=== PATIENT | male | born 1965 | race Caucasian/White ===

== ENCOUNTER → 2016-10-07 | Outpatient (CLI) | payer OTHER ==
[2016-10-07 10:13] LABS: Basophils % (A) 1 %; CH 27.1; CHCM 33.1; Eosinophils # (A) 0.2 k/uL (0-0.7); Eosinophils % (A) 4 %; HCT 41.8 % (39.0-53.0); HDW 2.93; HGB 13.6 gm/dL (13.0-17.5); Luc # (Auto) 0.06; Luc % (Auto) 1; Lymphocytes # (A) 1.7 k/uL (1.0-4.8); Lymphocytes % (A) 28 %; MCH 26.8 pg (25.0-35.0); MCHC 32.5 g/dL (31.0-37.0); MCV 82.3 fL (80.0-100.0); Mean Platelet Volume 6.8; Monocytes # (A) 0.4 k/uL (0-1.0); Monocytes % (A) 7 %; Neutrophils # (A) 3.5 k/uL (1.3-7.7); Neutrophils % (A) 59 %; RBC 5.07 m/uL (4.30-5.90); RDW 12.7 % (11.5-15.5); WBC (Perox) 6.45
[2016-10-07 10:37] LABS: ALT 28 U/L (21-72); AST 17 U/L (17-59); Alkaline Phosphatase 79 U/L (38-126); Bilirubin, Delta 0.3 mg/dL (0.0-0.2); Blood Urea Nitrogen 9 mg/dL (9-20); Cholesterol 212 mg/dL (<200); Glucose 91 mg/dL (74-99); HDL Cholesterol 39 mg/dL (40-60); Non-African American GFR(MDRD) >60 (>60 ml/min/1.73 sqM); Total Bilirubin 0.5 mg/dL (0.2-1.3); Triglycerides 303 mg/dL (<150)
== END | disposition home or self-care (01) ==
LOC: LABWHC1 09:50
PROVIDERS: ATTEND Orthopaedic Surgery Orthopaedic Surgery of the Spine
DX: Z51.81 Encounter for therapeutic drug level monitoring (principal); Z79.899 Other long term (current) drug therapy
CPT/HCPCS: 36415; 80061; 80076; 80164; 82306; 82565; 82947; 84520; 85025

== ENCOUNTER 2016-10-28 09:58 | Day surgery (SDC) | payer OTHER ==
[2016-10-22 16:36] VITALS: BMI 38.0
[~2016-10-28 09:58] MED LIST: LACTATED RINGERS 1,000 ML IV SCH
[2016-10-28] MEDS ORDERED: LIDOCAINE 1% 20 ML VIAL (10MG/ML) FOR IV START INTRADERMA ONE (10:28)
[2016-10-28 10:29] VITALS: TEMP 97.9
[2016-10-28] MEDS ORDERED: fentaNYL (PF) 50 MCG/ML 2 ML AMP ONE (11:28)
[2016-10-28] MEDS ORDERED: TRIAMCINOLONE ACETONIDE 40 MG/ML 1 ML VIAL ONE (11:28)
[2016-10-28] MEDS ORDERED: BUPIVACAINE (PF) 0.5% 30 ML VIAL ONE (11:28)
[2016-10-28] MEDS ORDERED: MIDAZOLAM 2 MG/2 ML VIAL ONE (11:28)
--- NOTE | 2016-10-28 11:51 | P.PCN ---
Date of Procedure: 10/28/16 Surgeon: Chao Castillo Pathology: none sent Condition: stable Disposition: PACU Description of Procedure: PREOPERATIVE DIAGNOSIS: L3-L4, L4-L5, and L5-S1 spondylosis without myelopathy and facet arthropathy. POSTOPERATIVE DIAGNOSIS: L3-L4, L4-L5, and L5-S1 spondylosis without myelopathy and facet arthropathy. PROCEDURE DESCRIPTION: Patient presents for L3, L4 and L5 diagnostic medial branch blocks under fluoroscopic guidance. The procedure is performed using fluoroscopic guidance during needle placement to assure proper position and maximize safety. ANESTHESIA: Local with 1% lidocaine; conscious sedation EBL: Minimal PROCEDURE INDICATION: Patient with lumbar facet arthropathy signs and symptoms, here for diagnostic medial branch block. Pt does not take any blood thinning medications. PROCEDURE DESCRIPTION: The patient was seen and identified in the preoperative area. Risks, benefits, complications, and alternatives were discussed with the patient (including but not limited to incomplete pain relief, bleeding, infection, nerve damage, and allergies to medications), the patient agreed to proceed with the procedure and signed the consent after all questions were answered. Patient was taken to the OR and time out was completed to verify proper patient, position, laterality of pain, and allergies. Pt was placed in the prone position and a pillow was placed under the abdomen to reduce lumbar lordosis. The lumbosacral area was prepped and draped in the usual sterile fashion. Using oblique fluoroscopy, the eye of the "Darryl dog" of right L4 vertebral body, which corresponds to the path of the medial branch originating from the level above, which is L3 in this case, was identified. Subsequently, a 22-gauge 3.5-inch spinal needle was inserted under fluoroscopic guidance toward the eye of the "Darryl dog" of the right L4 vertebral body, corresponding to the junction of the superior articular process and the transverse process of the pedicle of the same level. After needle tip confirmation on lateral view and after negative aspiration for CSF and blood and without paresthesias, 1 mL of a 6 ml solution of 0.5% preservative-free bupivacaine and 40 mg Kenalog was injected. Subsequently the needle was withdrawn intact and the same procedure was repeated for the right L4, right L5, left L3, left L4, and left L5 medial branches which together with right L3 medial branch correspond to the sensory innervation of the bilateral L3-L4, L4-L5, and L5-S1 facet joints. Needle was withdrawn intact after each injection. At the end of the procedure, the skin was cleansed and bandages were applied. COMPLICATIONS: None. DISPOSITION/PLAN: The patient taken to the recovery area after the procedure in a stable condition for observation. Patient was reexamined prior to discharge and there were no issues. Patient was discharged home, accompanied by an adult, after meeting discharged criteria. Discharge instructions were give to the patient by the staff. Patient was specifically instructed not to drive today and to rest for the rest of the day. If patient has relief, he will follow up for MBB #2 in 4-6 weeks.
[2016-10-28] MEDS ORDERED: IV FLUID CONTINUATION 1,000 ML IV ONE (12:01)
[2016-10-28 12:03] VITALS: RESP 18
--- NOTE | 2016-10-28 12:03 | FL ---
EXAMINATION TYPE: FL guided pain mgmt statistic DATE OF EXAM: 10/28/2016 11:56 AM CLINICAL HISTORY: Low back pain. TECHNIQUE: Fluoroscopy. COMPARISON: None. FINDINGS: Fluoroscopic guidance was provided during pain relief procedure performed by Dr. Castillo . A total of 28 seconds of fluoroscopic time was utilized during the procedure and 5 spot images are ac quired. Images acquired shows needle localization at several levels in the lumbar spine near lumbosa cral junction. IMPRESSION: As Above.
[2016-10-28 12:20] VITALS: BP 118/69; PULSE 72
== END 2016-10-28 12:41 | disposition home or self-care (01) ==
LOC: ORPAIN 09:58
PROVIDERS: ATTEND Anesthesiology
DX: G89.29 Other chronic pain (principal); M47.817 Spondylosis without myelopathy or radiculopathy, lumbosacral region; M46.97 Unspecified inflammatory spondylopathy, lumbosacral region; F41.9 Anxiety disorder, unspecified; F31.9 Bipolar disorder, unspecified; K21.9 Gastro-esophageal reflux disease without esophagitis; N40.0 Benign prostatic hyperplasia without lower urinary tract symptoms
CPT/HCPCS: 64493; 64494; 64495; J2250; J3301; J3010

== ENCOUNTER 2016-11-24 06:20 | Day surgery (SDC) | payer OTHER ==
[2016-11-19 12:52] VITALS: BMI 35.9
[2016-11-24 06:52] VITALS: RESP 18; TEMP 97.1
[2016-11-24] MEDS ORDERED: LIDOCAINE 1% 20 ML VIAL (10MG/ML) FOR IV START INTRADERMA ONE (07:00)
[2016-11-24] MEDS ORDERED: TRIAMCINOLONE ACETONIDE 40 MG/ML 1 ML VIAL ONE (08:11)
[2016-11-24] MEDS ORDERED: MIDAZOLAM 2 MG/2 ML VIAL ONE (08:11)
[2016-11-24] MEDS ORDERED: fentaNYL (PF) 50 MCG/ML 2 ML AMP ONE (08:11)
[2016-11-24] MEDS ORDERED: BUPIVACAINE (PF) 0.5% 30 ML VIAL ONE (08:11)
--- NOTE | 2016-11-24 08:39 | P.PCN ---
Date of Procedure: 11/24/16 Procedure(s) Performed: PREOPERATIVE DIAGNOSIS : 1- Lumbar spondylosis with Facet Arthropathy without myelopathy . 2- Lumber degenerative disc disease POSTOPERATIVE DIAGNOSIS: 1- Lumbar spondylosis with Facet Arthropathy without myelopathy . 2- Lumber degenerative disc disease PROCEDURE: Diagnostic bilateral L3 -4 , L4 -5 , and L5-S1 medial branch block under fluoroscopy# 2nd ANESTHESIA: Local with 1% lidocaine6 ml ; IV sedation with Versed 2 mg and Fentanyl 100 mcg. EBL: Minimal COMPLICATION: None. IV FLUIDS: 100 mL of normal saline. PROCEDURE INDICATION: Chronic low back pain secondary to Facet arthropathy unresponsive to conservative treatment. PROCEDURE DESCRIPTION: the patient was seen and identified in the preop holding area , risks and benefits and possible complications of the procedure and alternative were discussed with the patient, and the patient agreed to proceed with the procedure and signed the consent IV was started and vital signs monitored during the procedure and fluoroscopy was used to maximize the benefit and accuracy of the needle placement, and sedation was given to decrease patient anxiety, patient was taken to the procedure room and placed in prone position vital signs monitored in the back prepped with chlorhexidine X3 then under strict sterile technique using a right oblique fluoroscopy ,the junction of the transverse process and the superior articulating process of the right L3- 4 , L4- 5, and L5-S1 vertebra which corresponding to the fluoroscopy image of the eye of the Darryl dog on the block side for the medial branches and subsequently , after local infiltration of skin and subcu tissuies with lidocaine 1% one mL at each level ,then 22- gauge Quincke-type needles , 3 needle was used , each one of them placed at the junction of the base of the transverse process and the superior articular process at the appropriate level, and the needle was advanced until the periosteum contacted, needle placement confirmed with AP oblique and lateral view and after appropriate needle placement confirmed, and after negative aspiration for heme and CSF and there was no paresthesia 1-1/2 mL of Marcaine 0.5% mixed with 40 mg Kenalog , then half mL injected at each level after negative aspiration the needle subsequently removed and the same procedure repeated for the left side at left side at L3-4, L4- 5 and L5-S1 levels. At the end of the procedure and the needles removed and a bandage applied after the skin was cleaned the cleaning solution patient taken to recovery room in stable condition and monitors in the recovery room for 20-30 minutes and discharged home in stable condition after discharge criteria met and patient will follow up with the pain clinic in 2-4 weeks
[2016-11-24] MEDS ORDERED: IV FLUID CONTINUATION 1,000 ML IV ONE (08:45)
[2016-11-24 09:08] VITALS: BP 117/80; PULSE 74
--- NOTE | 2016-11-24 09:14 | FL ---
EXAMINATION TYPE: FL guided pain mgmt statistic DATE OF EXAM: 11/24/2016 8:40 AM CLINICAL HISTORY: Low back pain. TECHNIQUE: Fluoroscopy. COMPARISON: None. FINDINGS: Fluoroscopic guidance was provided during pain relief procedure performed by Dr. Obando . A total of 11 seconds of fluoroscopic time was utilized during the procedure and multiple spot samara ges are acquired. Images acquired shows needle localization in the lower lumbar spine off the midlin e bilaterally. IMPRESSION: As Above.
== END 2016-11-24 09:16 | disposition home or self-care (01) ==
LOC: ORPAIN 06:20
PROVIDERS: ATTEND Specialist
DX: G89.29 Other chronic pain (principal); M51.36 Other intervertebral disc degeneration, lumbar region; M47.816 Spondylosis without myelopathy or radiculopathy, lumbar region; M46.96 Unspecified inflammatory spondylopathy, lumbar region; I10 Essential (primary) hypertension
CPT/HCPCS: 64493; 64494; 64495; 99152; J2250; J3301; J3010

== ENCOUNTER → 2016-12-15 | Day surgery (SDC) | payer MEDICARE, OTHER ==
[2016-12-10 09:28] VITALS: BMI 35.2
[~2016-12-15] MED LIST changes: +LIDOCAINE 1% 20 ML VIAL (10MG/ML) FOR IV START SQ ONE
[2016-12-15 08:39] VITALS: BP 120/78; PULSE 78; RESP 20; TEMP 97.9
--- NOTE | 2016-12-15 08:53 | P.PN ---
Progress Note - Text Patient seen and examined in preop area. Patient states that he has no pain in his back right now and has had excellent relief from medial branch blocks. Will reschedule lumbar RFA for four weeks from now; instructed patient to call and cancel if he is still having good relief from the MBBs. No procedure done today.
== END ==
LOC: ORPAIN 07:36
DX: Z53.9 Procedure and treatment not carried out, unspecified reason (principal)

== ENCOUNTER 2017-07-26 09:53 | Day surgery (SDC) | payer MEDICARE ==
[2017-07-23 08:52] VITALS: BMI 36.2
[~2017-07-26 09:53] MED LIST changes: -LIDOCAINE 1% 20 ML VIAL (10MG/ML) FOR IV START SQ ONE
[2017-07-26 10:25] VITALS: RESP 16; TEMP 97.9
[2017-07-26] MEDS ORDERED: LIDOCAINE 1% 20 ML VIAL (10MG/ML) FOR IV START INTRADERMA ONE (10:28)
--- NOTE | 2017-07-26 11:33 | P.PCN ---
Date of Procedure: 07/26/17 Surgeon: Micaela Chadwick Pathology: none sent Condition: stable Disposition: PACU Description of Procedure: PREOPERATIVE DIAGNOSIS: Lumbar spondylosis without myelopathy, morbid obesity POSTOPERATIVE DIAGNOSIS: Lumbar spondylosis without myelopathy,morbid obesity PROCEDURES :Right Radiofrequency thermocoagulation,L2-4, L3-L4, L4-L5, and L5- S1 medial branch, with fluoroscopic guidance ANESTHESIA: IV sedation with versed and fentaneyl and local infiltration with lidocaine 1% 5 ml EBL: Minimal PROCEDURE INDICATION: The patient with low back pain secondary to lumbar facet arthropathy who had more than 50% relief of her pain with previous diagnostic lumbar medial branch block with bupivacaine. PROCEDURE DESCRIPTION / TECHNIQUE: The patient was seen and identified in the preoperative area. Risks, benefits, complications, including but not limited to risk of infection ,bleeding , allergic reactions to the medications and no complete pain releife , and alternatives were discussed with the patient, the patient agreed to proceed with the procedure and signed the consent. IV was started. Vital signs remained stable throughout the procedure. Patient was taken to the OR and time out was completed. The patient was placed in the prone position on the procedure table. The lumber area was prepped and draped in the usual sterile fashion. . Vital signs were closely monitored during the procedure .IV sedation was used during the procedure to decrease patients anxiety. The target points were identified as follows: For the L5-S1 level which corresponds to the dorsal ramus of L5 the target point was at the superior medial aspect of the sacral ala on the Rt side of the spine on the AP view of fluoroscopy and for the L2, L3, and L4 medial branches the target points were at the connection between the transverse process and the superior articular process of L3, L4, and L5 vertebra respectively on the Rt oblique view of fluoroscopy. skin was marked, and localized with 1% lidocaineat these points. Subsequently, an 18 -nh radiofrequency needles with a 10-mm curved active tips were advanced guided by fluoroscopy to each of the target points mentioned above in a superior medial direction to get the active tips as parallel as possible to the medial branches tracks. AP, oblique, and lateral views of fluoroscopy were used to verify needle tips position. Each level then underwent motor testing at 2.5 Hz and 0 to 3 volt with local stimulation, but no radicular symptoms down the legs. Thereafter radiofrequency thermocoagulation at 80 degrees celsius for 90 seconds after injecting 1 ml of PF Marcaine 0.25%(3 mls) with 40 mg of Kenalog. At the end of the procedure, the skin was cleansed and bandages were applied. COMPLICATIONS: No acute complications. DISPOSITION / PLANS: The patient was placed in a supine position and transferred to the recovery area in a stable condition for observation and was discharged from the recovery room after meeting discharge criteria. Home discharge instructions given to the patient by the staff. The patient was reexamined prior to discharge. The patient will schedule a follow up in the clinic in 2-4 weeks.
[2017-07-26] MEDS ORDERED: IV FLUID CONTINUATION 1,000 ML IV ONE (11:44)
[2017-07-26 11:59] VITALS: BP 155/98; PULSE 110
--- NOTE | 2017-07-26 14:37 | FL ---
EXAMINATION TYPE: FL guided pain mgmt statistic DATE OF EXAM: 07/26/2017 FLUOROSCOPY Fluoroscopy time of 14 seconds was used during right-sided lumbar radiofrequency ablation. 3 image/s document/s the procedure.
== END 2017-07-26 12:14 | disposition home or self-care (01) ==
LOC: ORPAIN 09:53
PROVIDERS: ATTEND Anesthesiology
DX: M47.816 Spondylosis without myelopathy or radiculopathy, lumbar region (principal); M51.36 Other intervertebral disc degeneration, lumbar region; M46.96 Unspecified inflammatory spondylopathy, lumbar region; I10 Essential (primary) hypertension; J45.909 Unspecified asthma, uncomplicated; G47.33 Obstructive sleep apnea (adult) (pediatric); E66.01 Morbid (severe) obesity due to excess calories; Z68.36 Body mass index [BMI] 36.0-36.9, adult
CPT/HCPCS: 64635; 64636 ×3; J2250; J3301; J3010; 99152; 99153

== ENCOUNTER 2018-05-16 05:10 | Emergency (ER) | payer MEDICARE ==
--- NOTE | 2018-05-16 05:25 | ED ---
General Adult HPI - General Chief complaint: Extremity Injury, Lower Stated complaint: LEG PAIN Time Seen by Provider: 05/16/18 05:11 Source: EMS Mode of arrival: EMS - History of Present Illness Initial comments: Que is a 52-year-old gentleman who presents to the emergency department today for evaluation of progressively worsening right ankle pain. Patient reports that he has a left ankle fracture which is currently casted and he has been walking with crutches. He has been prescribed Ultram for his pain in his left ankle and had been taking them but it made him very nauseated and didn't improve his pain so is quit taking it. Patient reports that over the past couple of days he's been feeling progressively worse having hot flashes, nausea , inability tolerate oral intake and worsening pain in his right ankle. Patient reports that over the past few hours he has noted progressive redness in the right ankle and has significant pain when attempting to ambulate even with his crutches. The patient does report a history of gout in the past though he can't recall which joint he had gout in or out was treated. He denies any history of septic joint or osteomyelitis to his knowledge. His pain is constant aching and sharp in nature, 10 out of 10 in severity, constant but worse with any movement or weightbearing, patient has identified no relieving factors to his pain. She does report that he had dropped something on his right ankle a couple of days ago it did cause a superficial laceration to the anterior surface of the right ankle but pain started a day or 2 after that. - Related Data Home Medications Medication Instructions Recorded Confirmed Citalopram Hydrobromide [CeleXA] 20 mg PO HS 08/24/16 07/23/17 Losartan Potassium 100 mg PO DAILY 08/24/16 07/23/17 Multivitamins, Thera [Multivitamin 1 each PO DAILY 08/24/16 07/23/17 (formulary)] Omeprazole [PriLOSEC] 20 mg PO DAILY 08/24/16 07/23/17 QUEtiapine [SEROquel] 25 mg PO BID 08/24/16 07/23/17 clonazePAM [KlonoPIN] 0.25 mg PO TID 08/24/16 07/23/17 Valproic Acid Oral Soln [Depakene 30 ml PO HS 09/01/16 07/23/17 Syrup] Previous Rx's Medication Instructions Recorded Albuterol Inhaler [Ventolin Hfa 2 puff INHALATION RT-BID PRN #1 04/01/15 Inhaler] inhaler Budesonide-Formot 160-4.5 Mcg 2 puff INHALATION RT-DAILY #1 04/01/15 [Symbicort 160-4.5 Mcg Inhaler] inhaler Levothyroxine Sodium [Synthroid] 50 mcg PO DAILY 14 Days tab 04/01/15 Tamsulosin [Flomax] 0.4 mg PO DAILY 7 Days cap.er.24h 04/01/15 QUEtiapine [SEROquel] 300 mg PO HS #42 tab 06/18/15 clonazePAM [KlonoPIN] 2 mg PO HS #28 tab 06/18/15 Ibuprofen [Motrin] 800 mg PO TID #30 tab 05/16/18 Allergies Allergy/AdvReac Type Severity Reaction Status Date / Time No Known Allergies Allergy Verified 07/26/17 10:21 Review of Systems ROS Statement: Those systems with pertinent positive or pertinent negative responses have been documented in the HPI. ROS Other: All systems not noted in ROS Statement are negative. Past Medical History Past Medical History: Asthma, GERD/Reflux, Hypertension, Osteoarthritis (OA), Thyroid Disorder Additional Past Medical History / Comment(s): psoriasis head and face, ESOPHAGEAL STRICTURE, alcoholism, BACK PAIN, bipolar History of Any Multi-Drug Resistant Organisms: None Reported Past Surgical History: Appendectomy Additional Past Surgical History / Comment(s): EGD x2, PAIN CLINIC PROCEDURES. Past Anesthesia/Blood Transfusion Reactions: No Reported Reaction Past Psychological History: Anxiety, Bipolar, Depression Smoking Status: Never smoker Past Alcohol Use History: None Reported Past Drug Use History: None Reported - Past Family History Mother Family Medical History: No Reported History Father Family Medical History: AFIB General Exam - General Exam Comments Initial Comments: GENERAL: Patient is well-developed and obese. Patient is chronically ill-appearing, diaphoretic, pale and appears very uncomfortable. HENT: Normocephalic, Atraumatic. Rash on scalp and face consistent with history of psoriasis EYES: The sclera were anicteric and conjunctiva were pink and moist. Extraocular movements were intact and pupils were equal round and reactive to light. Eyelids were unremarkable. PULMONARY: Unlabored respirations. Good breath sounds bilaterally. No audible rales rhonchi or wheezing was noted. CARDIOVASCULAR: Tachycardia, regular, no murmur rub or gallop ABDOMEN: Soft and nontender with normal bowel sounds. SKIN: Erythematous right ankle NEUROLOGIC: Patient is alert and oriented x3. Cranial nerves II through XII are grossly intact. Motor and sensory are also intact. Normal speech, volume and content. Symmetrical smile. MUSCULOSKELETAL: LLE in lower leg cast, toes neurovascularly intact RIght ankle with decreased active ROM, pain with ROM, overlying erythema LYMPHATICS: No significant lymphadenopathy is noted PSYCHIATRIC: Normal psychiatric evaluation. Limitations: no limitations Course Vital Signs 05/16/18 05/16/18 05/16/18 05:13 07:18 08:28 Temperature 98.5 F Pulse Rate 109 H 95 84 Respiratory 16 18 18 Rate Blood Pressure 123/85 123/86 117/80 O2 Sat by Pulse 96 96 95 Oximetry Medical Decision Making - Medical Decision Making Patient seen and evaluated, history was obtained from the patient Patient was tachycardic with an erythematous right ankle, sepsis workup and CRP an x-ray of the ankle were ordered Erythema of the ankle was marked with a permanent marker for closer monitoring. Labs with a significantly elevated uric acid as well as CRP. Patient does have a history of gout. I have a high suspicion of gout. Patient doesn't have leukocytosis or fever. Tachycardia resolved when patient's pain improved. X-ray reviewed, no changes suggestive of septic joint At this point based on history, physical exam, labs and xray I suspect the patient is having an acute gout flair. Colchicine ordered. Patient updated on findings and plan for treatment and discharge home. Patient frustrated but agreeable, can call his parents for ride home. Repeat dose of colchicine ordered. Morphine for pain management. Return parameters were discussed including any worsening or spreading redness, development of fevers, chills, nausea or vomiting. All her development of any new or concerning symptoms. Patient was discharged home in stable condition. - Lab Data Result diagrams: 05/16/18 06:57 05/16/18 06:57 Lab Results 05/16/18 05/16/18 05/16/18 Range/Units 06:57 06:57 06:57 WBC 9.8 (3.8-10.6) k/uL RBC 4.27 L (4.30-5.90) m/uL Hgb 12.7 L (13.0-17.5) gm/dL Hct 40.5 (39.0-53.0) % MCV 94.7 (80.0-100.0) fL MCH 29.7 (25.0-35.0) pg MCHC 31.4 (31.0-37.0) g/dL RDW 13.2 (11.5-15.5) % Plt Count 220 (150-450) k/uL Neutrophils % 76 % Lymphocytes % 14 % Monocytes % 7 % Eosinophils % 2 % Basophils % 0 % Neutrophils # 7.4 (1.3-7.7) k/uL Lymphocytes # 1.3 (1.0-4.8) k/uL Monocytes # 0.6 (0-1.0) k/uL Eosinophils # 0.2 (0-0.7) k/uL Basophils # 0.0 (0-0.2) k/uL PT (9.0-12.0) sec INR (<1.2) APTT (22.0-30.0) sec Sodium 141 (137-145) mmol/L Potassium 4.5 (3.5-5.1) mmol/L Chloride 101 (98-107) mmol/L Carbon Dioxide 27 (22-30) mmol/L Anion Gap 13 mmol/L BUN 15 (9-20) mg/dL Creatinine 1.00 (0.66-1.25) mg/dL Est GFR (CKD-EPI)AfAm >90 (>60 ml/min/1.73 sqM) Est GFR (CKD-EPI)NonAf 85 (>60 ml/min/1.73 sqM) Glucose 84 (74-99) mg/dL Plasma Lactic Acid Benji 1.0 (0.7-2.0) mmol/L Uric Acid 13.8 H* (3.5-8.5) mg/dL Calcium 9.2 (8.4-10.2) mg/dL Total Bilirubin 1.5 H (0.2-1.3) mg/dL AST 58 (17-59) U/L ALT 37 (21-72) U/L Alkaline Phosphatase 82 (38-126) U/L C-Reactive Protein 86.2 H (<10.0) mg/L Total Protein 6.8 (6.3-8.2) g/dL Albumin 3.7 (3.5-5.0) g/dL 05/16/18 Range/Units 06:57 WBC (3.8-10.6) k/uL RBC (4.30-5.90) m/uL Hgb (13.0-17.5) gm/dL Hct (39.0-53.0) % MCV (80.0-100.0) fL MCH (25.0-35.0) pg MCHC (31.0-37.0) g/dL RDW (11.5-15.5) % Plt Count (150-450) k/uL Neutrophils % % Lymphocytes % % Monocytes % % Eosinophils % % Basophils % % Neutrophils # (1.3-7.7) k/uL Lymphocytes # (1.0-4.8) k/uL Monocytes # (0-1.0) k/uL Eosinophils # (0-0.7) k/uL Basophils # (0-0.2) k/uL PT 16.9 H (9.0-12.0) sec INR 1.9 H (<1.2) APTT 27.8 (22.0-30.0) sec Sodium (137-145) mmol/L Potassium (3.5-5.1) mmol/L Chloride (98-107) mmol/L Carbon Dioxide (22-30) mmol/L Anion Gap mmol/L BUN (9-20) mg/dL Creatinine (0.66-1.25) mg/dL Est GFR (CKD-EPI)AfAm (>60 ml/min/1.73 sqM) Est GFR (CKD-EPI)NonAf (>60 ml/min/1.73 sqM) Glucose (74-99) mg/dL Plasma Lactic Acid Benji (0.7-2.0) mmol/L Uric Acid (3.5-8.5) mg/dL Calcium (8.4-10.2) mg/dL Total Bilirubin (0.2-1.3) mg/dL AST (17-59) U/L ALT (21-72) U/L Alkaline Phosphatase (38-126) U/L C-Reactive Protein (<10.0) mg/L Total Protein (6.3-8.2) g/dL Albumin (3.5-5.0) g/dL Disposition Clinical Impression: Obesity, Ankle fracture, Gout attack, Musculoskeletal pain Disposition: HOME SELF-CARE Condition: Stable Instructions: Gout (ED), Low Purine Diet (ED) Prescriptions: Ibuprofen [Motrin] 800 mg PO TID #30 tab Is patient prescribed a controlled substance at d/c from ED?: No Referrals: Sonali Main MD [Primary Care Provider] - 1-2 days
[2018-05-16] MEDS ORDERED: IBUPROFEN IV 600 MG in SODIUM CHLORIDE 0.9% 250 ML IV STA (06:33)
[2018-05-16] MEDS ORDERED: ACETAMINOPHEN TAB 500 MG TAB PO STA (06:33)
[2018-05-16 07:10] LABS: Basophils % (A) 0 %; Eosinophils # (A) 0.2 k/uL (0-0.7); Eosinophils % (A) 2 %; HCT 40.5 % (39.0-53.0); HGB 12.7 gm/dL (13.0-17.5); Lymphocytes # (A) 1.3 k/uL (1.0-4.8); Lymphocytes % (A) 14 %; MCH 29.7 pg (25.0-35.0); MCHC 31.4 g/dL (31.0-37.0); MCV 94.7 fL (80.0-100.0); Mean Platelet Volume 6.9; Monocytes # (A) 0.6 k/uL (0-1.0); Monocytes % (A) 7 %; Neutrophils # (A) 7.4 k/uL (1.3-7.7); Neutrophils % (A) 76 %; Platelet Count 220 k/uL (150-450); RBC 4.27 m/uL (4.30-5.90); RDW 13.2 % (11.5-15.5); WBC 9.8 k/uL (3.8-10.6)
[2018-05-16 07:18] LABS: INR 1.9 (<1.2); Partial Thromboplastin Time 27.8 sec (22.0-30.0); Prothrombin Time 16.9 sec (9.0-12.0)
[2018-05-16 07:20] VITALS: RESP 18
[2018-05-16 07:20] LABS: ALT 37 U/L (21-72); AST 58 U/L (17-59); Albumin 3.7 g/dL (3.5-5.0); Alkaline Phosphatase 82 U/L (38-126); Anion Gap 13 mmol/L; Blood Urea Nitrogen 15 mg/dL (9-20); C Reactive Protein 86.2 mg/L (<10.0); Calcium 9.2 mg/dL (8.4-10.2); Carbon Dioxide 27 mmol/L (22-30); Chloride 101 mmol/L (98-107); Glucose 84 mg/dL (74-99); Potassium 4.5 mmol/L (3.5-5.1); Sodium 141 mmol/L (137-145); Total Bilirubin 1.5 mg/dL (0.2-1.3); Total Protein 6.8 g/dL (6.3-8.2)
[2018-05-16] MEDS: SODIUM CHLORIDE 0.9% 500 ML IV SCH ×3 (07:20→08:26)
[2018-05-16 07:30] LABS: Uric Acid 13.8 mg/dL (3.5-8.5)
[2018-05-16] MEDS ORDERED: COLCHICINE 0.6 MG EACH PO STA ×2 (07:46→08:58)
--- NOTE | 2018-05-16 08:00 | XR ---
EXAMINATION TYPE: XR ankle limited RT DATE OF EXAM: 05/16/2018 COMPARISON: NONE HISTORY: 52-year-old male pain, concern for septic joint TECHNIQUE: 2 views FINDINGS: Vascular calcifications are present. There may be underlying small joint effusion. No periarticular o steopenia. Talar dome is intact. Mild diffuse thickening of the Achilles tendon could reflect tendino nery. No acute fracture or dislocation. IMPRESSION: Mild soft tissue swelling. Possible small effusion. No acute osseous abnormality seen. No periarticular osteopenia which is generally seen with a septic joint. Further clinical correlation will be needed.
[2018-05-16] MEDS ORDERED: MORPHINE SULFATE 4 MG/ML SYRINGE IVP STA (08:59)
[2018-05-16 09:25] VITALS: BP 145/89; PULSE 87
[2018-05-16 09:41] VITALS: TEMP 98.3
== END 2018-05-16 09:43 | disposition home or self-care (01) ==
LOC: EC 05:10
DX: S82.891A Other fracture of right lower leg, initial encounter for closed fracture (principal); M10.9 Gout, unspecified; E66.9 Obesity, unspecified; Z68.36 Body mass index [BMI] 36.0-36.9, adult; R00.0 Tachycardia, unspecified; K21.9 Gastro-esophageal reflux disease without esophagitis; I10 Essential (primary) hypertension; M19.90 Unspecified osteoarthritis, unspecified site; F41.9 Anxiety disorder, unspecified; F32.9 Major depressive disorder, single episode, unspecified; Z79.899 Other long term (current) drug therapy; W20.8XXA Other cause of strike by thrown, projected or falling object, initial encounter
CPT/HCPCS: 36415; 93005; 80053; 83605; 84550; 85025; 85610; 85730; 86140; 87040; 73600; 99284; 96365; 96375; J2270; J1741

== ENCOUNTER 2018-09-05 10:48 | Inpatient (IN) | payer MEDICARE ==
[2018-09-05] MEDS ORDERED: MORPHINE SULFATE 4 MG/ML SYRINGE IVP STA (11:14)
[2018-09-05] MEDS ORDERED: ONDANSETRON 4 MG/2 ML VIAL IVP STA (11:14)
--- NOTE | 2018-09-05 11:34 | ED ---
Extremity Problem HPI <Chas Weinstein - Last Filed: 09/05/18 15:35> - General Source: patient Mode of arrival: ambulatory Limitations: no limitations <Fawn Torre - Last Filed: 09/05/18 15:39> - General Chief complaint: Extremity Problem,Nontraumatic Stated complaint: Leg Swelling Time Seen by Provider: 09/05/18 11:02 - History of Present Illness Initial comments: 53-year-old male patient presents to the emergency department today for evaluation of painful, swollen left lower extremity. Patient states that he started to have swelling 2-3 days ago. Patient states that it has been worsening a daily basis. Patient states that it is very painful to walk on the leg. Denies any injuries. States that times he has been short of breath with left-sided chest pain. Patient denies any history of blood clots. Denies any recent travel, history of cancer, or prolonged immobilization. He denies any numbness or tingling to the leg. Denies any low back pain. Has not had any fever, chills, nausea, vomiting, or sweats. Patient denies any recent rash, abdominal pain, nausea, vomiting, diarrhea, constipation, back pain, dizziness, weakness, hematuria, dysuria, urinary urgency, urinary frequency, headache, visual changes, or any other complaints. (Fawn Torre) - Related Data Home Medications Medication Instructions Recorded Confirmed Citalopram Hydrobromide [CeleXA] 20 mg PO HS 08/24/16 07/23/17 Losartan Potassium 100 mg PO DAILY 08/24/16 07/23/17 Multivitamins, Thera [Multivitamin 1 each PO DAILY 08/24/16 07/23/17 (formulary)] Omeprazole [PriLOSEC] 20 mg PO DAILY 08/24/16 07/23/17 QUEtiapine [SEROquel] 25 mg PO BID 08/24/16 07/23/17 clonazePAM [KlonoPIN] 0.25 mg PO TID 08/24/16 07/23/17 Valproic Acid Oral Soln [Depakene 30 ml PO HS 09/01/16 07/23/17 Syrup] Previous Rx's Medication Instructions Recorded Albuterol Inhaler [Ventolin Hfa 2 puff INHALATION RT-BID PRN #1 04/01/15 Inhaler] inhaler Budesonide-Formot 160-4.5 Mcg 2 puff INHALATION RT-DAILY #1 04/01/15 [Symbicort 160-4.5 Mcg Inhaler] inhaler Levothyroxine Sodium [Synthroid] 50 mcg PO DAILY 14 Days tab 04/01/15 Tamsulosin [Flomax] 0.4 mg PO DAILY 7 Days cap.er.24h 04/01/15 QUEtiapine [SEROquel] 300 mg PO HS #42 tab 06/18/15 clonazePAM [KlonoPIN] 2 mg PO HS #28 tab 06/18/15 Ibuprofen [Motrin] 800 mg PO TID #30 tab 05/16/18 Allergies Allergy/AdvReac Type Severity Reaction Status Date / Time No Known Allergies Allergy Verified 09/05/18 10:54 Review of Systems ROS Other: All systems not noted in ROS Statement are negative. <Chas Weinstein - Last Filed: 09/05/18 15:35> ROS Other: All systems not noted in ROS Statement are negative. <Fawn Torre - Last Filed: 09/05/18 15:39> ROS Statement: Those systems with pertinent positive or pertinent negative responses have been documented in the HPI. Past Medical History Past Medical History: Asthma, GERD/Reflux, Hypertension, Osteoarthritis (OA), Thyroid Disorder Additional Past Medical History / Comment(s): psoriasis head and face, ESOPHAGEAL STRICTURE, alcoholism, BACK PAIN, bipolar History of Any Multi-Drug Resistant Organisms: None Reported Past Surgical History: Appendectomy Additional Past Surgical History / Comment(s): EGD x2, PAIN CLINIC PROCEDURES. Past Anesthesia/Blood Transfusion Reactions: No Reported Reaction Past Psychological History: Anxiety, Bipolar, Depression Smoking Status: Never smoker Past Alcohol Use History: None Reported Past Drug Use History: None Reported - Past Family History Mother Family Medical History: No Reported History Father Family Medical History: AFIB <Fawn Torre - Last Filed: 09/05/18 15:39> General Exam Limitations: no limitations General appearance: alert, in no apparent distress, other (This is a well- developed, well-nourished adult male patient in no acute distress. Vital signs upon presentation are temperature 98.0F, pulse 93, respirations 20, blood pressure 119/83, pulse ox 95% on room air.) Eye exam: Present: normal appearance, PERRL, EOMI. Absent: scleral icterus, conjunctival injection, periorbital swelling ENT exam: Present: normal exam, normal oropharynx, mucous membranes moist Respiratory exam: Present: normal lung sounds bilaterally. Absent: respiratory distress, wheezes, rales, rhonchi, stridor Cardiovascular Exam: Present: regular rate, normal rhythm, normal heart sounds. Absent: systolic murmur, diastolic murmur, rubs, gallop, clicks GI/Abdominal exam: Present: soft, normal bowel sounds. Absent: distended, tenderness, guarding, rebound, rigid Extremities exam: Present: full ROM, normal capillary refill, other (Patient has generalized 3+ pitting edema to the left leg. Patient has sommer appearance to the entire left leg. Pedal and posttibial pulses palpable.). Absent: normal inspection, tenderness, pedal edema, joint swelling, calf tenderness Neurological exam: Present: alert, oriented X3, CN II-XII intact Psychiatric exam: Present: normal affect, normal mood Skin exam: Present: warm, dry, intact, normal color. Absent: rash <Bantle,Fawn M - Last Filed: 09/05/18 15:39> Vital Signs 09/05/18 09/05/18 09/05/18 10:52 13:52 14:00 Temperature 98 F Pulse Rate 93 Respiratory 20 Rate Blood Pressure 119/83 117/74 117/74 O2 Sat by Pulse 95 86 L Oximetry 09/05/18 09/05/18 09/05/18 14:10 14:20 14:29 Temperature 98.7 F Pulse Rate 96 Respiratory 20 Rate Blood Pressure 117/74 117/74 120/82 O2 Sat by Pulse 91 L 90 L 89 L Oximetry 09/05/18 09/05/18 09/05/18 14:30 14:40 14:50 Temperature Pulse Rate 97 98 Respiratory 19 10 L Rate Blood Pressure 117/74 120/82 120/82 O2 Sat by Pulse 88 L 96 95 Oximetry 09/05/18 09/05/18 09/05/18 15:00 15:10 15:20 Temperature Pulse Rate 95 92 96 Respiratory 10 L 12 19 Rate Blood Pressure 120/82 121/93 121/93 O2 Sat by Pulse 93 L 92 L Oximetry Medical Decision Making - Lab Data Result diagrams: 09/05/18 11:35 09/05/18 11:35 <Chas Weinstein - Last Filed: 09/05/18 15:35> - Lab Data Result diagrams: 09/05/18 11:35 09/05/18 11:35 - EKG Data -: EKG Interpreted by Me - Radiology Data Radiology results: report reviewed, image reviewed <Fawn Torre - Last Filed: 09/05/18 15:39> - Medical Decision Making Patient reevaluated and reexamined by myself, Dr. Weinstein. Patient resting comfortably in bed. I did review and agree with PAs findings. This includes all diagnostic interpretation and treatment plan. Case was discussed in detail with Dr. Ann, covering for Dr. Garay, who will admit. (Chas Weinstein) 53-year-old male patient presented to the emergency department today for evaluation of left lower extremity swelling and pain. Patient also reported intermittent episodes of shortness of breath and chest pain. Labs reviewed and are relatively unremarkable. Ultrasound of the left lower extremity was obtained and did reveal extensive DVT from the left groin to the proximal calf veins. The patient's history of shortness of breath and chest pain over the last couple of days he did perform CT angio of the chest for PE which did reveal multiple pulmonary emboli especially on the right with small saddle embolus. No evidence of right heart strain. EKG is normal sinus rhythm. Troponin negative. Did discuss results with my attending Dr. Weinstein, patient will be admitted with high-dose heparin. (Fawn Torre) - Lab Data Lab Results 09/05/18 09/05/18 09/05/18 Range/Units 11:35 11:35 11:35 WBC 9.3 (3.8-10.6) k/uL RBC 4.35 (4.30-5.90) m/uL Hgb 12.7 L (13.0-17.5) gm/dL Hct 40.9 (39.0-53.0) % MCV 94.0 (80.0-100.0) fL MCH 29.2 (25.0-35.0) pg MCHC 31.1 (31.0-37.0) g/dL RDW 12.9 (11.5-15.5) % Plt Count 210 (150-450) k/uL Neutrophils % 67 % Lymphocytes % 18 % Monocytes % 8 % Eosinophils % 4 % Basophils % 1 % Neutrophils # 6.2 (1.3-7.7) k/uL Lymphocytes # 1.6 (1.0-4.8) k/uL Monocytes # 0.8 (0-1.0) k/uL Eosinophils # 0.3 (0-0.7) k/uL Basophils # 0.1 (0-0.2) k/uL PT (9.0-12.0) sec INR (<1.2) APTT (22.0-30.0) sec Sodium 142 (137-145) mmol/L Potassium 4.7 (3.5-5.1) mmol/L Chloride 104 (98-107) mmol/L Carbon Dioxide 31 H (22-30) mmol/L Anion Gap 7 mmol/L BUN 4 L (9-20) mg/dL Creatinine 0.82 (0.66-1.25) mg/dL Est GFR (CKD-EPI)AfAm >90 (>60 ml/min/1.73 sqM) Est GFR (CKD-EPI)NonAf >90 (>60 ml/min/1.73 sqM) Glucose 102 H (74-99) mg/dL Calcium 8.4 (8.4-10.2) mg/dL Total Bilirubin 0.5 (0.2-1.3) mg/dL AST 41 (17-59) U/L ALT 27 (21-72) U/L Alkaline Phosphatase 76 (38-126) U/L Total Creatine Kinase 33 L (55-170) U/L CK-MB (CK-2) <0.2 (0.0-2.4) ng/mL CK-MB (CK-2) Rel Index Troponin I <0.012 (0.000-0.034) ng/mL Total Protein 5.8 L (6.3-8.2) g/dL Albumin 3.0 L (3.5-5.0) g/dL 09/05/ Range/Units 11:35 WBC (3.8-10.6) k/uL RBC (4.30-5.90) m/uL Hgb (13.0-17.5) gm/dL Hct (39.0-53.0) % MCV (80.0-100.0) fL MCH (25.0-35.0) pg MCHC (31.0-37.0) g/dL RDW (11.5-15.5) % Plt Count (150-450) k/uL Neutrophils % % Lymphocytes % % Monocytes % % Eosinophils % % Basophils % % Neutrophils # (1.3-7.7) k/uL Lymphocytes # (1.0-4.8) k/uL Monocytes # (0-1.0) k/uL Eosinophils # (0-0.7) k/uL Basophils # (0-0.2) k/uL PT 11.0 (9.0-12.0) sec INR 1.0 (<1.2) APTT 22.0 (22.0-30.0) sec Sodium (137-145) mmol/L Potassium (3.5-5.1) mmol/L Chloride (98-107) mmol/L Carbon Dioxide (22-30) mmol/L Anion Gap mmol/L BUN (9-20) mg/dL Creatinine (0.66-1.25) mg/dL Est GFR (CKD-EPI)AfAm (>60 ml/min/1.73 sqM) Est GFR (CKD-EPI)NonAf (>60 ml/min/1.73 sqM) Glucose (74-99) mg/dL Calcium (8.4-10.2) mg/dL Total Bilirubin (0.2-1.3) mg/dL AST (17-59) U/L ALT (21-72) U/L Alkaline Phosphatase (38-126) U/L Total Creatine Kinase (55-170) U/L CK-MB (CK-2) (0.0-2.4) ng/mL CK-MB (CK-2) Rel Index Troponin I (0.000-0.034) ng/mL Total Protein (6.3-8.2) g/dL Albumin (3.5-5.0) g/dL - EKG Data EKG Comments: EKG obtained at 1125 shows sinus tachycardia, ventricular rate 102, WI interval 128, QRS duration 88, QT 350, QTC 456. No evidence of ST elevation or depression. (Fawn Torre) - Radiology Data CT chest with contrast for PE was obtained. Report was reviewed in its entirety. Impression by Dr. Chu shows exam positive for pulmonary embolus. Moderate to severe burden on the right, trace burden on the left, and a small saddle embolus as well. No CT evidence for right heart strain at this time. Findings called to the ER and given to NARCISA Torre at 1:21 PM. Mild diffuse bronchial wall thickening just bronchitis or asthma. Focal 2.1 cm nodule opacification anteromedial right base Is a small pulmonary infarct given the patient's pulmonary emboli. Given follow-up CT recommended to exclude small early mass. Marked hepatic steatosis. Ultrasound of the left lower extremity was obtained. Report was reviewed in its entirety. Impression by Dr. Chu shows extensive acute DVT throughout the visualized left lower extremity. (Fawn Torre) Disposition <Chas Weinstein - Last Filed: 09/05/18 15:35> Decision to Admit Reason: Admit from EC Decision Date: 09/05/18 Decision Time: 13:39 <Fawn Torre - Last Filed: 09/05/18 15:39> Clinical Impression: Left leg DVT, Pulmonary emboli Disposition: ADMITTED IP TO THIS [facility] Condition: Serious Referrals: Sonali Main MD [Primary Care Provider] - 1-2 days
[2018-09-05 11:59] LABS: Basophils # (A) 0.1 k/uL (0-0.2); Basophils % (A) 1 %; Eosinophils # (A) 0.3 k/uL (0-0.7); Eosinophils % (A) 4 %; HCT 40.9 % (39.0-53.0); HGB 12.7 gm/dL (13.0-17.5); Lymphocytes # (A) 1.6 k/uL (1.0-4.8); Lymphocytes % (A) 18 %; MCH 29.2 pg (25.0-35.0); MCHC 31.1 g/dL (31.0-37.0); Mean Platelet Volume 6.3; Monocytes # (A) 0.8 k/uL (0-1.0); Monocytes % (A) 8 %; Neutrophils # (A) 6.2 k/uL (1.3-7.7); Neutrophils % (A) 67 %; Platelet Count 210 k/uL (150-450); RBC 4.35 m/uL (4.30-5.90); RDW 12.9 % (11.5-15.5); WBC 9.3 k/uL (3.8-10.6)
[2018-09-05 12:09] LABS: ALT 27 U/L (21-72); AST 41 U/L (17-59); Alkaline Phosphatase 76 U/L (38-126); Anion Gap 7 mmol/L; Blood Urea Nitrogen 4 mg/dL (9-20); Calcium 8.4 mg/dL (8.4-10.2); Carbon Dioxide 31 mmol/L (22-30); Chloride 104 mmol/L (98-107); Glucose 102 mg/dL (74-99); Potassium 4.7 mmol/L (3.5-5.1); Sodium 142 mmol/L (137-145); Total Bilirubin 0.5 mg/dL (0.2-1.3); Total Protein 5.8 g/dL (6.3-8.2)
[2018-09-05 12:18] LABS: Creatine Kinase 33 U/L (55-170)
--- NOTE | 2018-09-05 12:32 | US ---
EXAMINATION TYPE: US venous doppler duplex LE LT DATE OF EXAM: 09/05/2018 12:08 PM COMPARISON: NONE CLINICAL HISTORY: 53 year old Pain. Left leg swelling SIDE PERFORMED: Left TECHNIQUE: The lower extremity deep venous system is examined utilizing real time linear array sonog wayne with graded compression, doppler sonography and color-flow sonography. FINDINGS: VESSELS IMAGED: External Iliac Vein (EIV) Common Femoral Vein Deep Femoral Vein Greater Saphenous Vein * Femoral Vein Popliteal Vein Small Saphenous Vein * Proximal Calf Veins (* superficial vessels) Left Leg: Positive for DVT, Extensive DVT from groin to prox calf vein, vessel is distend with inte rnal echoes and no flow. IMPRESSION: Extensive acute DVT throughout the visualized left lower extremity.
[2018-09-05 12:33] LABS: Creatine Kinase MB <0.2 ng/mL (0.0-2.4); Troponin I <0.012 ng/mL (0.000-0.034)
--- NOTE | 2018-09-05 13:25 | CT ---
EXAMINATION TYPE: CT chest angio for PE DATE OF EXAM: 09/05/2018 COMPARISON: None HISTORY: 53-year-old male with pain, Left leg swelling TECHNIQUE: Contiguous axial scanning of the chest performed without and with IV Contrast, patient inj ected with 100 ml mL of Isovue 370. Coronal/sagittal MIP reconstructions performed. 3-D reconstructio ns generated on a dedicated independent workstation. CT DLP: 451.9 mGycm Automated exposure control for dose reduction was used. FINDINGS: Heart normal size without pericardial effusion. No flattening of the interventricular septum or reflu x of contrast into the hepatic veins. Mild coronary vessel calcifications are present. Ectatic ascending aorta measuring up to 3.7 cm. Conventional arch vessel branching anatomy. Small saddle embolus and extensive thrombus within the distal aspect of the right main pulmonary karl ry extending throughout the right-sided lobar branches and some of the right lower lobe segmental bra nches. On the left, small left upper lobe branch clot is present as well as a couple segmental branch emboli of the left lower lobe. Mild bronchial wall thickening and some respiratory motion artifact. Scattered nonenlarged mediastinal lymph nodes. No thoracic lymphadenopathy by CT size criteria. There is focal nodular opacification measuring 2.1 cm along the anteromedial right base that could re present inflammatory sequela related to the patient's pulmonary emboli. Follow-up is recommended. Tye e hazy dependent atelectasis posterior left base. No pleural effusion. Visualized upper abdomen shows marked hepatic steatosis. Bones: Old healed right-sided rib fracture deformities. No osseous destructive process. Moderate to large bilateral gynecomastia incidentally noted. IMPRESSION: 1. EXAM POSITIVE FOR PULMONARY EMBOLUS. MODERATE TO SEVERE BURDEN ON THE RIGHT, TRACE BURDEN ON THE L EFT, AND A SMALL SADDLE EMBOLUS WELL. NO CT EVIDENCE FOR RIGHT HEART STRAIN AT THIS TIME. FINDINGS CALLED TO THE ER AND GIVEN TO BEATRICE HATCH AT 1:21pm. 2. MILD DIFFUSE BRONCHIAL WALL THICKENING SUGGESTS BRONCHITIS OR ASTHMA. 3. FOCAL 2.1 CM NODULAR OPACIFICATION ANTEROMEDIAL RIGHT BASE COULD REPRESENT A SMALL PULMONARY INFAR CT GIVEN THE PATIENT'S PULMONARY EMBOLI. THREE-MONTH FOLLOW-UP CT RECOMMENDED TO EXCLUDE A SMALL EDWIN Y MASS. 3. MARKED HEPATIC STEATOSIS.
[2018-09-05] MEDS ORDERED: HEPARIN SODIUM,PORCINE 5,000 UNIT/ML 1 ML VIAL IV PRN (13:33)
[2018-09-05] MEDS ORDERED: HEPARIN SODIUM,PORCINE 10,000 UNIT/ML 1 ML VIAL IV ONE (13:33)
[2018-09-05] MEDS ORDERED: ONDANSETRON 4 MG/2 ML VIAL IVP PRN (13:33)
[2018-09-05] MEDS ORDERED: NALOXONE 0.4 MG/ML 1 ML VIAL IV PRN (13:33)
[2018-09-05] MEDS: MORPHINE SULFATE 4 MG/ML SYRINGE IV PRN ×3 (13:53→21:43)
[2018-09-05] MEDS: SODIUM CHLORIDE 0.9% 1,000 ML IV SCH (13:54)
[2018-09-05] MEDS: HEPARIN SOD,PORK IN 0.45% NACL 25,000 UNIT in 0.45% NACL 1 250ML.BAG IV SCH (14:36)
[2018-09-05] MEDS ORDERED: VALPROIC ACID ORAL SOLN 250 MG/5 ML CUP PO PRN (16:32)
[2018-09-05] MEDS: GABAPENTIN 100 MG CAP PO SCH ×3 (17:31→20:22)
[2018-09-05 19:10] LABS: Basophils # (A) 0.1 k/uL (0-0.2); Basophils % (A) 1 %; Eosinophils # (A) 0.4 k/uL (0-0.7); Eosinophils % (A) 4 %; HCT 40.8 % (39.0-53.0); HGB 12.5 gm/dL (13.0-17.5); Lymphocytes # (A) 2.7 k/uL (1.0-4.8); Lymphocytes % (A) 25 %; MCH 29.2 pg (25.0-35.0); MCHC 30.6 g/dL (31.0-37.0); MCV 95.5 fL (80.0-100.0); Mean Platelet Volume 6.7; Monocytes # (A) 0.8 k/uL (0-1.0); Monocytes % (A) 7 %; Neutrophils # (A) 6.6 k/uL (1.3-7.7); Neutrophils % (A) 61 %; Platelet Count 181 k/uL (150-450); RBC 4.27 m/uL (4.30-5.90); RDW 13.1 % (11.5-15.5); WBC 10.9 k/uL (3.8-10.6)
[2018-09-05] MEDS: QUEtiapine 25 MG TAB PO SCH (20:21)
[2018-09-05] MEDS: clonazePAM 1 MG TAB PO SCH (20:28)
[2018-09-05] MEDS: CITALOPRAM HYDROBROMIDE 10 MG TAB PO SCH (20:28)
[2018-09-05] MEDS: QUEtiapine 100 MG TAB PO SCH (20:28)
[2018-09-05] MEDS: ALBUTEROL NEBULIZED 2.5 MG/3 ML INHALATION PRN (22:03)
[2018-09-06] MEDS: MORPHINE SULFATE 4 MG/ML SYRINGE IV PRN ×5 (03:28→21:39)
[2018-09-06] MEDS: HEPARIN SOD,PORK IN 0.45% NACL 25,000 UNIT in 0.45% NACL 1 250ML.BAG IV SCH ×2 (03:31→04:58)
[2018-09-06 03:36] LABS: Basophils # (A) 0.1 k/uL (0-0.2); Basophils % (A) 1 %; Eosinophils # (A) 0.4 k/uL (0-0.7); Eosinophils % (A) 4 %; HGB 12.3 gm/dL (13.0-17.5); Hypochromasia Slight; Lymphocytes # (A) 2.7 k/uL (1.0-4.8); Lymphocytes % (A) 26 %; MCH 29.8 pg (25.0-35.0); MCHC 30.7 g/dL (31.0-37.0); MCV 97.1 fL (80.0-100.0); Mean Platelet Volume 6.8; Monocytes % (A) 10 %; Neutrophils # (A) 5.7 k/uL (1.3-7.7); Neutrophils % (A) 56 %; Platelet Count 183 k/uL (150-450); RBC 4.12 m/uL (4.30-5.90); RDW 13.1 % (11.5-15.5); WBC 10.2 k/uL (3.8-10.6)
[2018-09-06] MEDS: PANTOPRAZOLE 40 MG TABLET PO SCH (06:11)
[2018-09-06] MEDS: LEVOTHYROXINE 50 MCG TAB PO SCH (06:11)
[2018-09-06] MEDS: SYMBICORT 160-4.5 MCG INHALER INHALATION SCH (07:56)
[2018-09-06] MEDS: GABAPENTIN 100 MG CAP PO SCH ×4 (08:09→21:35)
[2018-09-06] MEDS: QUEtiapine 25 MG TAB PO SCH ×2 (08:10→21:36)
[2018-09-06] MEDS: LOSARTAN 50 MG TAB PO SCH (08:10)
[2018-09-06 11:50] LABS: Glucose,Whole Blood 110 mg/dL (75-99)
[2018-09-06] MEDS: SODIUM CHLORIDE 0.9% 1,000 ML IV SCH (14:58)
[2018-09-06] MEDS: ALBUTEROL NEBULIZED 2.5 MG/3 ML INHALATION PRN (21:12)
[2018-09-06] MEDS: CITALOPRAM HYDROBROMIDE 10 MG TAB PO SCH (21:35)
[2018-09-06] MEDS: clonazePAM 1 MG TAB PO SCH (21:36)
[2018-09-06] MEDS: QUEtiapine 100 MG TAB PO SCH (21:39)
--- NOTE | 2018-09-07 02:56 | P.HPIM ---
History of Present Illness H&P Date: 09/06/18 Chief Complaint: Lower extremity swelling and shortness of breath 53-year-old male patient presents to the emergency department for evaluation of painful, swollen left lower extremity. Patient states that he started to have swelling 2-3 days ago. Patient states that it has been worsening a daily basis. Patient states that it is very painful to walk on the leg. Denies any injuries. States that times he has been short of breath with left-sided chest pain. Patient denies any history of blood clots. Denies any recent travel, history of cancer, or prolonged immobilization. He denies any numbness or tingling to the leg. Denies any low back pain. Has not had any fever, chills, nausea, vomiting, or sweats. Patient denies any recent rash, abdominal pain, nausea, vomiting, diarrhea, constipation, back pain, dizziness, weakness, hematuria, dysuria, urinary urgency, urinary frequency, headache, visual changes , or any other complaints. Baseline medical problems are associated with major depression, chronic persistent asthma and COPD, BPH, hypothyroidism Workup and evaluation revealed that she was significantly hypoxic requiring Proventil oxygen, saturation on arrival was only 88-91%, duplex ultrasound of the lower x- ray were positive extensive deep venous thrombosis from left groin to proximal calf, CT NG revealed multiple right-sided pulmonary embolism a small saddle embolism no evidence of right heart strain was noted, troponins were normal patient is being treated with IV heparin, echocardiogram is pending Review of Systems All systems: negative Past Medical History Past Medical History: Asthma, GERD/Reflux, Hypertension, Osteoarthritis (OA), Thyroid Disorder Additional Past Medical History / Comment(s): psoriasis head and face, esophageal stricture, alcoholism, gout, lt ankle fx, insomnia, neuropathy "meds did'nt work so i stopped taking it", back pain, bipolar depression/anx/panic disorder, lumbar ddd History of Any Multi-Drug Resistant Organisms: None Reported Past Surgical History: Appendectomy Additional Past Surgical History / Comment(s): EGD x2,esophageal dilation, bx PAIN CLINIC PROCEDURES.lt ankle sx set and casted Past Anesthesia/Blood Transfusion Reactions: No Reported Reaction Smoking Status: Never smoker - Past Family History Mother Family Medical History: No Reported History Father Family Medical History: AFIB Medications and Allergies Home Medications Medication Instructions Recorded Confirmed Type Albuterol Inhaler [Ventolin Hfa 2 puff INHALATION RT-BID PRN #1 04/01/15 Rx Inhaler] inhaler Budesonide-Formot 160-4.5 Mcg 2 puff INHALATION RT-DAILY #1 04/01/15 09/05/18 Rx [Symbicort 160-4.5 Mcg Inhaler] inhaler Levothyroxine Sodium [Synthroid] 50 mcg PO DAILY 14 Days tab 04/01/15 09/05/18 Rx QUEtiapine [SEROquel] 300 mg PO HS #42 tab 06/18/15 09/05/18 Rx clonazePAM [KlonoPIN] 2 mg PO HS #28 tab 06/18/15 09/05/18 Rx Citalopram Hydrobromide [CeleXA] 20 mg PO HS 08/24/16 09/05/18 History Losartan Potassium 100 mg PO DAILY 08/24/16 09/05/18 History Omeprazole [PriLOSEC] 20 mg PO DAILY 08/24/16 09/05/18 History QUEtiapine [SEROquel] 25 mg PO BID 08/24/16 09/05/18 History Valproic Acid Oral Soln [Depakene 30 ml PO HS PRN 09/01/16 09/05/18 History Syrup] Gabapentin [Neurontin] 100 mg PO QID 09/05/18 09/05/18 History Allergies Allergy/AdvReac Type Severity Reaction Status Date / Time No Known Allergies Allergy Verified 09/05/18 15:47 Physical Exam Vitals: Vital Signs Temp Pulse Pulse Resp BP Pulse Ox 09/07/18 00:00 88 15 90/58 93 L 09/06/18 21:13 84 09/06/18 20:00 98.5 F 92 20 100/60 86 L 09/06/18 15:44 111 H 18 09/06/18 15:43 97.3 F L 111 H 18 101/66 92 L 09/06/18 12:00 98.5 F 105 H 18 107/76 91 L 09/06/18 11:07 117 H 18 09/06/18 08:00 98.5 F 117 H 18 106/66 92 L 09/06/18 07:32 109 H 18 09/06/18 04:00 98.7 F 109 H 18 125/94 90 L Intake and Output 09/06/18 09/06/18 09/07/18 14:59 22:59 06:59 Intake Total 240 Output Total 150 Balance 90 Intake: Oral 240 Output: Urine 150 Other: Voiding Method Urinal Urinal - Constitutional General appearance: cooperative, disheveled, morbidly obese, no acute distress - EENT Eyes: EOMI, PERRLA, normal appearance Ears: bilateral: normal - Neck Carotids: bilateral: upstroke normal Thyroid: bilateral: normal size - Respiratory Respiratory: bilateral: CTA - Cardiovascular Heart sounds: normal: S1, S2 - Gastrointestinal General gastrointestinal: decreased bowel sounds, soft - Integumentary Integumentary: normal turgor - Neurologic Neurologic: CNII-XII intact - Musculoskeletal Musculoskeletal: gait normal, generalized weakness, strength equal bilaterally - Psychiatric Psychiatric: A&O x's 3, appropriate affect, intact judgment & insight Results CBC & Chem 7: 09/06/18 03:19 09/05/18 11:35 Labs: Abnormal Lab Results - Last 24 Hours (Table) 09/06/18 09/06/18 09/06/18 Range/Units 03:19 03:19 11:31 RBC 4.12 L (4.30-5.90) m/uL Hgb 12.3 L (13.0-17.5) gm/dL MCHC 30.7 L (31.0-37.0) g/dL APTT 58.9 H (22.0-30.0) sec POC Glucose (mg/dL) 110 H (75-99) mg/dL Chest x-ray: report reviewed, image reviewed CT scan - chest: report reviewed, image reviewed (Finding as noted above) Venous US: report reviewed Thrombosis Risk Factor Assmnt - Choose All That Apply Each Factor Represents 1 point: Age 41-60 years, Swollen legs (current) Each Risk Factor Represents 3 Points: History of DVT/PE Thrombosis Risk Factor Assessment Total Risk Factor Score: 5 Thrombosis Risk Factor Assessment Level: High Risk Assessment and Plan Assessment: Acute pulmonary embolism Left lower extremity DVT and venous thrombosis Hypothyroidism Depression and mood disorder GERD Chronic persistent intermittent asthma Plan: Continue home medications IV heparin, eventually will be switched to oral Eliquis Obtain echocardiogram Further recommendations pending plan of care as per clinical response of the patient Time with Patient: Greater than 30
[2018-09-07 04:46] LABS: Basophils # (A) 0.1 k/uL (0-0.2); Basophils % (A) 1 %; Eosinophils # (A) 0.4 k/uL (0-0.7); Eosinophils % (A) 5 %; HGB 11.4 gm/dL (13.0-17.5); Lymphocytes # (A) 2.5 k/uL (1.0-4.8); Lymphocytes % (A) 27 %; MCH 30.6 pg (25.0-35.0); MCHC 31.6 g/dL (31.0-37.0); MCV 96.7 fL (80.0-100.0); Mean Platelet Volume 6.6; Monocytes # (A) 0.8 k/uL (0-1.0); Monocytes % (A) 9 %; Neutrophils # (A) 5.1 k/uL (1.3-7.7); Neutrophils % (A) 56 %; Platelet Count 168 k/uL (150-450); RBC 3.72 m/uL (4.30-5.90); RDW 13.3 % (11.5-15.5); WBC 9.1 k/uL (3.8-10.6)
[2018-09-07] MEDS: HEPARIN SOD,PORK IN 0.45% NACL 25,000 UNIT in 0.45% NACL 1 250ML.BAG IV SCH ×3 (05:15→20:53)
[2018-09-07] MEDS: LEVOTHYROXINE 50 MCG TAB PO SCH (06:17)
[2018-09-07] MEDS: PANTOPRAZOLE 40 MG TABLET PO SCH (06:17)
[2018-09-07] MEDS: SYMBICORT 160-4.5 MCG INHALER INHALATION SCH (07:45)
[2018-09-07] MEDS: MORPHINE SULFATE 4 MG/ML SYRINGE IV PRN ×4 (07:59→21:25)
[2018-09-07] MEDS: LOSARTAN 50 MG TAB PO SCH (07:59)
[2018-09-07] MEDS: QUEtiapine 25 MG TAB PO SCH ×2 (07:59→20:49)
[2018-09-07] MEDS: GABAPENTIN 100 MG CAP PO SCH ×3 (07:59→20:48)
[2018-09-07] MEDS: SODIUM CHLORIDE 0.9% 1,000 ML IV SCH (09:37)
--- NOTE | 2018-09-07 15:09 | P.PN ---
Subjective Progress Note Date: 09/07/18 Principal diagnosis: Acute bilateral pulmonary embolism, left lower extremity DVT and is thrombosis, hypertension hypertensive cardiovascular disease, bipolar disorder 09/07/2018, patient seen eval examined during the rounds has been tolerating heparin very well no more chest pain has been noted but still uncomfortable in the lower extremity, severity however has improved, patient remains on IV heparin, hemodynamic status stable, labs reviewed medications reviewed, care plan discussed with the patient at length likely will be placed on oral anticoagulants from tomorrow and will DC the heparin drip at that point 53-year-old male patient presents to the emergency department for evaluation of painful, swollen left lower extremity. Patient states that he started to have swelling 2-3 days ago. Patient states that it has been worsening a daily basis. Patient states that it is very painful to walk on the leg. Denies any injuries. States that times he has been short of breath with left-sided chest pain. Patient denies any history of blood clots. Denies any recent travel, history of cancer, or prolonged immobilization. He denies any numbness or tingling to the leg. Denies any low back pain. Has not had any fever, chills, nausea, vomiting, or sweats. Patient denies any recent rash, abdominal pain, nausea, vomiting, diarrhea, constipation, back pain, dizziness, weakness, hematuria, dysuria, urinary urgency, urinary frequency, headache, visual changes , or any other complaints. Baseline medical problems are associated with major depression, chronic persistent asthma and COPD, BPH, hypothyroidism Workup and evaluation revealed that she was significantly hypoxic requiring Proventil oxygen, saturation on arrival was only 88-91%, duplex ultrasound of the lower x- ray were positive extensive deep venous thrombosis from left groin to proximal calf, CT NG revealed multiple right-sided pulmonary embolism a small saddle embolism no evidence of right heart strain was noted, troponins were normal patient is being treated with IV heparin, echocardiogram is pending Objective - Vital Signs Vital signs: Vital Signs Temp 97.8 F 09/07/18 12:00 Pulse 104 H 09/07/18 12:00 Resp 18 09/07/18 12:00 BP 94/54 09/07/18 12:00 Pulse Ox 92 L 09/07/18 12:00 Intake & Output 09/06/18 09/07/18 09/07/18 18:59 06:59 18:59 Intake Total 240 250 Output Total 150 Balance 240 100 Weight 115.3 kg Intake: Intake, IV Titration 250 Amount Heparin Sod,Pork in 0.45% 250 NaCl 25,000 unit In 0.45 % NaCl 1 250ml.bag @ 18 UNITS/KG/HR 21.22 mls/hr IV .[id number] [facility] Rx#: [id number] Oral 240 Output: Urine 150 Other: Voiding Method Urinal Urinal - Exam - Constitutional General appearance: cooperative, disheveled, morbidly obese, no acute distress - EENT Eyes: EOMI, PERRLA, normal appearance Ears: bilateral: normal - Neck Carotids: bilateral: upstroke normal Thyroid: bilateral: normal size - Respiratory Respiratory: bilateral: CTA - Cardiovascular Heart sounds: normal: S1, S2 - Gastrointestinal General gastrointestinal: decreased bowel sounds, soft - Integumentary Integumentary: normal turgor - Neurologic Neurologic: CNII-XII intact - Musculoskeletal Musculoskeletal: gait normal, generalized weakness, strength equal bilaterally - Psychiatric Psychiatric: A&O x's 3, appropriate affect, intact judgment & insight - Labs CBC & Chem 7: 09/07/18 03:54 09/05/18 11:35 Labs: Abnormal Lab Results - Last 24 Hours (Table) 09/07/18 09/07/18 Range/Units 03:54 03:54 RBC 3.72 L (4.30-5.90) m/uL Hgb 11.4 L (13.0-17.5) gm/dL Hct 36.0 L (39.0-53.0) % APTT 60.2 H (22.0-30.0) sec Assessment and Plan Assessment: Acute pulmonary embolism Left lower extremity DVT and venous thrombosis Hypothyroidism Depression and mood disorder GERD Chronic persistent intermittent asthma Plan: Continue home medications IV heparin, eventually will be switched to oral Eliquis in next 24 hours Obtain echocardiogram, still pending for now Further recommendations pending plan of care as per clinical response of the patient Time with Patient: Greater than 30
[2018-09-07 16:25] LABS: Glucose,Whole Blood 99 mg/dL (75-99)
[2018-09-07] MEDS: CITALOPRAM HYDROBROMIDE 10 MG TAB PO SCH (20:48)
[2018-09-07] MEDS: clonazePAM 1 MG TAB PO SCH (20:49)
[2018-09-07] MEDS: QUEtiapine 100 MG TAB PO SCH (20:49)
[2018-09-08] MEDS: PANTOPRAZOLE 40 MG TABLET PO SCH (06:32)
[2018-09-08] MEDS: MORPHINE SULFATE 4 MG/ML SYRINGE IV PRN ×3 (06:32→20:24)
[2018-09-08] MEDS: LEVOTHYROXINE 50 MCG TAB PO SCH (06:32)
[2018-09-08 07:04] LABS: Basophils % (A) 1 %; Eosinophils # (A) 0.3 k/uL (0-0.7); Eosinophils % (A) 4 %; HGB 11.3 gm/dL (13.0-17.5); Hypochromasia Slight; Lymphocytes # (A) 2.1 k/uL (1.0-4.8); Lymphocytes % (A) 27 %; MCH 29.9 pg (25.0-35.0); MCHC 30.6 g/dL (31.0-37.0); MCV 97.8 fL (80.0-100.0); Mean Platelet Volume 7.2; Monocytes # (A) 0.7 k/uL (0-1.0); Monocytes % (A) 9 %; Neutrophils # (A) 4.5 k/uL (1.3-7.7); Neutrophils % (A) 57 %; Platelet Count 169 k/uL (150-450); RBC 3.78 m/uL (4.30-5.90); RDW 13.1 % (11.5-15.5); WBC 7.9 k/uL (3.8-10.6)
--- NOTE | 2018-09-08 08:35 | ECHOF ---
Referral Reason:pulmnary hypertension MEASUREMENTS -------- HEIGHT: 182.9 cm WEIGHT: 115.2 kg BP: RVIDd: 3.6 cm (< 3.3) IVSd: 1.1 cm (0.6 - 1.1) LVIDd: 2.5 cm (3.9 - 5.3) LVPWd: 1.3 cm (0.6 - 1.1) IVSs: 1.4 cm LVIDs: 1.3 cm LVPWs: 1.5 cm Ao Diam: 3.1 cm (2.0 - 3.7) AV Cusp: 1.9 cm (1.5 - 2.6) LA Diam: 3.4 cm (2.7 - 3.8) MV E Cristino: 0.41 m/s MV DecT: 92 ms MV A Cristino: 0.44 m/s MV E/A Ratio: 0.93 RAP: 5.00 mmHg RVSP: 15.84 mmHg FINDINGS -------- Resting tachycardia (HR>100bpm). This was a technically difficult study with suboptimal views. The left ventricular size is normal. There is mild concentric left ventricular hypertrophy. Overa ll left ventricular systolic function is normal with, an EF between 55 - 60 %. The right ventricle is mildly enlarged. The left atrium is normal in size. The right atrium is normal in size. xx ml of Lumason was utilized for enhancement of images. The aortic valve is trileaflet, and appears structurally normal. No aortic stenosis or regurgitation. There is trace mitral regurgitation. Trace tricuspid regurgitation present. The right ventricular systolic pressure, as measured by Dopp ler, is 15.84mmHg. Pulmonic valve appears structurally normal. The aortic root size is normal. The pericardium is normal. CONCLUSIONS -------- 1. Resting tachycardia (HR>100bpm). 2. This was a technically difficult study with suboptimal views. 3. The left ventricular size is normal. 4. There is mild concentric left ventricular hypertrophy. 5. Overall left ventricular systolic function is normal with, an EF between 55 - 60 %. 6. The right ventricle is mildly enlarged. 7. The left atrium is normal in size. 8. The right atrium is normal in size. 9. xx ml of Lumason was utilized for enhancement of images. 10. The aortic valve is trileaflet, and appears structurally normal. No aortic stenosis or regurgitat ion. 11. There is trace mitral regurgitation. 12. Trace tricuspid regurgitation present. 13. The right ventricular systolic pressure, as measured by Doppler, is 15.84mmHg. 14. Pulmonic valve appears structurally normal. 15. The aortic root size is normal. 16. The pericardium is normal. [employer] ATTENDANT: Annel Lehman RDCS
[2018-09-08] MEDS: GABAPENTIN 100 MG CAP PO SCH ×4 (08:55→20:21)
[2018-09-08] MEDS: QUEtiapine 25 MG TAB PO SCH ×2 (08:55→20:21)
[2018-09-08] MEDS: LOSARTAN 50 MG TAB PO SCH ×2 (08:55→09:07)
[2018-09-08] MEDS: SYMBICORT 160-4.5 MCG INHALER INHALATION SCH (09:13)
[2018-09-08] MEDS: HEPARIN SOD,PORK IN 0.45% NACL 25,000 UNIT in 0.45% NACL 1 250ML.BAG IV SCH (11:58)
[2018-09-08] MEDS: SODIUM CHLORIDE 0.9% 1,000 ML IV SCH (15:52)
--- NOTE | 2018-09-08 19:28 | P.PN ---
Subjective Progress Note Date: 09/08/18 Principal diagnosis: Acute bilateral pulmonary embolism, left lower extremity DVT and is thrombosis, hypertension hypertensive cardiovascular disease, bipolar disorder 09/08/2018, patient seen quoc examined during the rounds clinically has been doing well awake and alert patient denies any chest pain or shortness of breath unable to get up and move around but however is still have some left lower extremity pain and swelling, plan is to DC the heparin drip and start patient on the 10 mg of Eliquis twice a day tonight and possible discharge in next 24- 48 hours, labs reviewed medications reviewed care plan discussed with patient and staff at length 09/07/2018, patient seen quoc examined during the rounds has been tolerating heparin very well no more chest pain has been noted but still uncomfortable in the lower extremity, severity however has improved, patient remains on IV heparin, hemodynamic status stable, labs reviewed medications reviewed, care plan discussed with the patient at length likely will be placed on oral anticoagulants from tomorrow and will DC the heparin drip at that point 53-year-old male patient presents to the emergency department for evaluation of painful, swollen left lower extremity. Patient states that he started to have swelling 2-3 days ago. Patient states that it has been worsening a daily basis. Patient states that it is very painful to walk on the leg. Denies any injuries. States that times he has been short of breath with left-sided chest pain. Patient denies any history of blood clots. Denies any recent travel, history of cancer, or prolonged immobilization. He denies any numbness or tingling to the leg. Denies any low back pain. Has not had any fever, chills, nausea, vomiting, or sweats. Patient denies any recent rash, abdominal pain, nausea, vomiting, diarrhea, constipation, back pain, dizziness, weakness, hematuria, dysuria, urinary urgency, urinary frequency, headache, visual changes , or any other complaints. Baseline medical problems are associated with major depression, chronic persistent asthma and COPD, BPH, hypothyroidism Workup and evaluation revealed that she was significantly hypoxic requiring Proventil oxygen, saturation on arrival was only 88-91%, duplex ultrasound of the lower x- ray were positive extensive deep venous thrombosis from left groin to proximal calf, CT NG revealed multiple right-sided pulmonary embolism a small saddle embolism no evidence of right heart strain was noted, troponins were normal patient is being treated with IV heparin, echocardiogram is pending Objective - Vital Signs Vital signs: Vital Signs Temp 98.4 F 09/08/18 16:00 Pulse 83 09/08/18 16:00 Resp 18 09/08/18 16:00 BP 109/56 09/08/18 16:00 Pulse Ox 94 L 09/08/18 16:00 Intake & Output 09/08/18 09/08/18 09/09/18 06:59 18:59 06:59 Intake Total 226.727 512.088 Output Total 1400 Balance -1173.273 512.088 Weight 115 kg Intake: Intake, IV Titration 226.727 294.088 Amount Heparin Sod,Pork in 0.45% 226.727 294.088 NaCl 25,000 unit In 0.45 % NaCl 1 250ml.bag @ 18 UNITS/KG/HR 21.22 mls/hr IV .[id number] [facility] Rx#: [id number] Oral 218 Output: Urine 1400 Straight 700 Other: Voiding Method Urinal Urinal # Voids 3 - Exam - Constitutional General appearance: cooperative, disheveled, morbidly obese, no acute distress - EENT Eyes: EOMI, PERRLA, normal appearance Ears: bilateral: normal - Neck Carotids: bilateral: upstroke normal Thyroid: bilateral: normal size - Respiratory Respiratory: bilateral: CTA - Cardiovascular Heart sounds: normal: S1, S2 - Gastrointestinal General gastrointestinal: decreased bowel sounds, soft - Integumentary Integumentary: normal turgor - Neurologic Neurologic: CNII-XII intact - Musculoskeletal Musculoskeletal: gait normal, generalized weakness, strength equal bilaterally - Psychiatric Psychiatric: A&O x's 3, appropriate affect, intact judgment & insight - Labs CBC & Chem 7: 09/08/18 05:26 09/05/18 11:35 Labs: Abnormal Lab Results - Last 24 Hours (Table) 09/08/18 09/08/18 09/08/18 Range/Units 05:26 05:26 13:29 RBC 3.78 L (4.30-5.90) m/uL Hgb 11.3 L (13.0-17.5) gm/dL Hct 37.0 L (39.0-53.0) % MCHC 30.6 L (31.0-37.0) g/dL APTT 45.2 H 52.0 H (22.0-30.0) sec Assessment and Plan Assessment: Acute pulmonary embolism Left lower extremity DVT and venous thrombosis Hypothyroidism Depression and mood disorder GERD Chronic persistent intermittent asthma Plan: Continue home medications IV heparin to be discontinued and start oral Eliquis 10 mg bid Echocardiogram results and reports are reviewed no evidence of significant pulmonary hypertension Further recommendations pending plan of care as per clinical response of the patient Time with Patient: Greater than 30
[2018-09-08] MEDS: clonazePAM 1 MG TAB PO SCH (20:21)
[2018-09-08] MEDS: QUEtiapine 100 MG TAB PO SCH (20:21)
[2018-09-08] MEDS: CITALOPRAM HYDROBROMIDE 10 MG TAB PO SCH (20:21)
[2018-09-08] MEDS: APIXABAN 5 MG TAB PO SCH (20:21)
[2018-09-09 05:54] VITALS: TEMP 98.1
[2018-09-09] MEDS: PANTOPRAZOLE 40 MG TABLET PO SCH (05:54)
[2018-09-09] MEDS: LEVOTHYROXINE 50 MCG TAB PO SCH (05:54)
[2018-09-09] MEDS: MORPHINE SULFATE 4 MG/ML SYRINGE IV PRN ×3 (05:55→15:14)
[2018-09-09 06:53] LABS: Basophils # (A) 0.1 k/uL (0-0.2); Basophils % (A) 1 %; Eosinophils # (A) 0.3 k/uL (0-0.7); Eosinophils % (A) 5 %; HCT 37.3 % (39.0-53.0); HGB 11.8 gm/dL (13.0-17.5); Lymphocytes # (A) 1.4 k/uL (1.0-4.8); Lymphocytes % (A) 21 %; MCH 30.5 pg (25.0-35.0); MCHC 31.5 g/dL (31.0-37.0); MCV 96.6 fL (80.0-100.0); Mean Platelet Volume 6.9; Monocytes # (A) 0.6 k/uL (0-1.0); Monocytes % (A) 9 %; Neutrophils # (A) 4.2 k/uL (1.3-7.7); Neutrophils % (A) 62 %; Platelet Count 213 k/uL (150-450); RBC 3.87 m/uL (4.30-5.90); RDW 13.3 % (11.5-15.5); WBC 6.8 k/uL (3.8-10.6)
[2018-09-09] MEDS: GABAPENTIN 100 MG CAP PO SCH ×3 (08:15→17:42)
[2018-09-09] MEDS: QUEtiapine 25 MG TAB PO SCH (08:15)
[2018-09-09] MEDS: APIXABAN 5 MG TAB PO SCH (08:15)
[2018-09-09] MEDS: SYMBICORT 160-4.5 MCG INHALER INHALATION SCH (08:34)
[2018-09-09 11:08] VITALS: RESP 20
[2018-09-09] MEDS: LOSARTAN 50 MG TAB PO SCH (11:11)
[2018-09-09] MEDS: SODIUM CHLORIDE 0.9% 1,000 ML IV SCH (13:23)
[2018-09-09] MEDS: HYDROcodone/APAP 10-325MG 1 EACH TAB PO PRN ×2 (13:37→18:45)
--- NOTE | 2018-09-09 15:00 | CONS ---
CONSULTATION This is a 53-year-old gentleman who has been admitted with history of swelling of the left extremity of 2 days duration. Patient had a workup vein including venous ultrasound, which shows extensive DVT involving the left lower extremity from groin to the ankle. Patient also had a CT scan of the chest which showed multiple right-sided pulmonary embolism. Patient has been started on heparin. There is no history of traveling. No history of cancer. PAST MEDICAL HISTORY: Includes history of hypertension, thyroid disorder. SURGICAL HISTORY: Patient had appendectomy done in the past. PHYSICAL EXAMINATION: Patient was seen in his room. Neck is supple. Trachea central. Chest has clear few crackles at lung bases. Abdomen is soft. Patient has marked swelling of the left lower extremity and pulses are present by the Doppler. Motor functions are present. IMPRESSION: Extensive iliofemoral popliteal deep venous thrombosis with pulmonary embolism. Discussed with Dr. Ann. Patient will need a thrombolysis of the extensive deep venous thrombosis and patient will be transferred to the tertiary center by Dr. Ann. MMODL / IJN: [id number] /
--- NOTE | 2018-09-09 16:07 | P.PN ---
Subjective Progress Note Date: 09/09/18 Principal diagnosis: Acute bilateral pulmonary embolism, left lower extremity DVT and is thrombosis, hypertension hypertensive cardiovascular disease, bipolar disorder 09/09/2018, patient seen eval examined the rounds clinically patient has been doing slightly better in terms of breathing denies any chest pain denies any shortness of breath but continued to have issues and complain associated with leftward lower extremity pain, patient is still have significant swelling, given that the swelling and the pain I have asked DrAndrew was sent from vascular surgery to evaluate this patient he recommended patient has a significant amount of the clot load in the left lower extremity and would need the thrombolysis and possible thrombectomy given that we don't have that facility available locally patient likely will be transferred to a tertiary care center, I've discussed with [facility] patient will be transferred over there 09/08/2018, patient seen eval examined during the rounds clinically has been doing well awake and alert patient denies any chest pain or shortness of breath unable to get up and move around but however is still have some left lower extremity pain and swelling, plan is to DC the heparin drip and start patient on the 10 mg of Eliquis twice a day tonight and possible discharge in next 24- 48 hours, labs reviewed medications reviewed care plan discussed with patient and staff at length 09/07/2018, patient seen eval examined during the rounds has been tolerating heparin very well no more chest pain has been noted but still uncomfortable in the lower extremity, severity however has improved, patient remains on IV heparin, hemodynamic status stable, labs reviewed medications reviewed, care plan discussed with the patient at length likely will be placed on oral anticoagulants from tomorrow and will DC the heparin drip at that point 53-year-old male patient presents to the emergency department for evaluation of painful, swollen left lower extremity. Patient states that he started to have swelling 2-3 days ago. Patient states that it has been worsening a daily basis. Patient states that it is very painful to walk on the leg. Denies any injuries. States that times he has been short of breath with left-sided chest pain. Patient denies any history of blood clots. Denies any recent travel, history of cancer, or prolonged immobilization. He denies any numbness or tingling to the leg. Denies any low back pain. Has not had any fever, chills, nausea, vomiting, or sweats. Patient denies any recent rash, abdominal pain, nausea, vomiting, diarrhea, constipation, back pain, dizziness, weakness, hematuria, dysuria, urinary urgency, urinary frequency, headache, visual changes , or any other complaints. Baseline medical problems are associated with major depression, chronic persistent asthma and COPD, BPH, hypothyroidism Workup and evaluation revealed that she was significantly hypoxic requiring Proventil oxygen, saturation on arrival was only 88-91%, duplex ultrasound of the lower x- ray were positive extensive deep venous thrombosis from left groin to proximal calf, CT NG revealed multiple right-sided pulmonary embolism a small saddle embolism no evidence of right heart strain was noted, troponins were normal patient is being treated with IV heparin, echocardiogram is pending Objective - Vital Signs Vital signs: Vital Signs Temp 98.1 F 09/09/18 08:00 Pulse 88 09/09/18 11:06 Resp 20 09/09/18 11:06 BP 114/69 09/09/18 11:06 Pulse Ox 93 L 09/09/18 11:06 Intake & Output 09/08/18 09/09/18 09/09/18 18:59 06:59 18:59 Intake Total 512.088 0 1062 Output Total 800 Balance 512.088 0 262 Intake: Intake, IV Titration 294.088 0 Amount Heparin Sod,Pork in 0.45% 294.088 NaCl 25,000 unit In 0.45 % NaCl 1 250ml.bag @ 18 UNITS/KG/HR 21.22 mls/hr IV .[id number] [facility] Rx#: [id number] Sodium Chloride 0.9% 1, 0 000 ml @ 20 mls/hr IV . Q24H [facility] Rx#:[id number] Oral 218 1062 Output: Urine 800 Other: Voiding Method Urinal Urinal # Voids 3 2 - Exam - Constitutional General appearance: cooperative, disheveled, morbidly obese, no acute distress - EENT Eyes: EOMI, PERRLA, normal appearance Ears: bilateral: normal - Neck Carotids: bilateral: upstroke normal Thyroid: bilateral: normal size - Respiratory Respiratory: bilateral: CTA - Cardiovascular Heart sounds: normal: S1, S2 - Gastrointestinal General gastrointestinal: decreased bowel sounds, soft - Integumentary Integumentary: normal turgor - Neurologic Neurologic: CNII-XII intact - Musculoskeletal Musculoskeletal: gait normal, generalized weakness, strength equal bilaterally - Psychiatric Psychiatric: A&O x's 3, appropriate affect, intact judgment & insight - Labs CBC & Chem 7: 09/09/18 06:26 09/05/18 11:35 Labs: Abnormal Lab Results - Last 24 Hours (Table) 09/09/18 Range/Units 06:26 RBC 3.87 L (4.30-5.90) m/uL Hgb 11.8 L (13.0-17.5) gm/dL Hct 37.3 L (39.0-53.0) % Assessment and Plan Assessment: Extensive left lower extremity deep venous thrombosis with poor response to therapy Acute pulmonary embolism Left lower extremity DVT and venous thrombosis Hypothyroidism Depression and mood disorder GERD Chronic persistent intermittent asthma Plan: Continue home medications, patient will be transferred for a thrombolysis and possible thrombectomy to tertiary care center IV heparin to be discontinued and start oral Eliquis 10 mg bid Echocardiogram results and reports are reviewed no evidence of significant pulmonary hypertension Further recommendations pending plan of care as per clinical response of the patient Time with Patient: Greater than 30
--- NOTE | 2018-09-09 16:10 | P.DS ---
Providers Date of admission: 09/05/18 15:36 Expected date of discharge: 09/09/18 Attending physician: Evans Ann Consults: 09/09/18 13:29 Consult Physician Routine Consulting Provider: Dada Damian Consult Reason/Comments: DVT Do you want consulting provider notified?: Yes [facility] care [facility] Course: Acute bilateral pulmonary embolism, left lower extremity DVT and is thrombosis, hypertension hypertensive cardiovascular disease, bipolar disorder 09/09/2018, patient seen eval examined the rounds clinically patient has been doing slightly better in terms of breathing denies any chest pain denies any shortness of breath but continued to have issues and complain associated with leftward lower extremity pain, patient is still have significant swelling, given that the swelling and the pain I have asked DrAndrew was sent from vascular surgery to evaluate this patient he recommended patient has a significant amount of the clot load in the left lower extremity and would need the thrombolysis and possible thrombectomy given that we don't have that facility available locally patient likely will be transferred to a tertiary care center, I've discussed with [facility] patient will be transferred over there 09/08/2018, patient seen eval examined during the rounds clinically has been doing well awake and alert patient denies any chest pain or shortness of breath unable to get up and move around but however is still have some left lower extremity pain and swelling, plan is to DC the heparin drip and start patient on the 10 mg of Eliquis twice a day tonight and possible discharge in next 24- 48 hours, labs reviewed medications reviewed care plan discussed with patient and staff at length 09/07/2018, patient seen eval examined during the rounds has been tolerating heparin very well no more chest pain has been noted but still uncomfortable in the lower extremity, severity however has improved, patient remains on IV heparin, hemodynamic status stable, labs reviewed medications reviewed, care plan discussed with the patient at length likely will be placed on oral anticoagulants from tomorrow and will DC the heparin drip at that point 53-year-old male patient presents to the emergency department for evaluation of painful, swollen left lower extremity. Patient states that he started to have swelling 2-3 days ago. Patient states that it has been worsening a daily basis. Patient states that it is very painful to walk on the leg. Denies any injuries. States that times he has been short of breath with left-sided chest pain. Patient denies any history of blood clots. Denies any recent travel, history of cancer, or prolonged immobilization. He denies any numbness or tingling to the leg. Denies any low back pain. Has not had any fever, chills, nausea, vomiting, or sweats. Patient denies any recent rash, abdominal pain, nausea, vomiting, diarrhea, constipation, back pain, dizziness, weakness, hematuria, dysuria, urinary urgency, urinary frequency, headache, visual changes , or any other complaints. Baseline medical problems are associated with major depression, chronic persistent asthma and COPD, BPH, hypothyroidism Workup and evaluation revealed that she was significantly hypoxic requiring Proventil oxygen, saturation on arrival was only 88-91%, duplex ultrasound of the lower x- ray were positive extensive deep venous thrombosis from left groin to proximal calf, CT NG revealed multiple right-sided pulmonary embolism a small saddle embolism no evidence of right heart strain was noted, troponins were normal patient is being treated with IV heparin, echocardiogram is pending Objective - Vital Signs Vital signs: Vital Signs Temp 98.1 F 09/09/18 08:00 Pulse 88 09/09/18 11:06 Resp 20 09/09/18 11:06 BP 114/69 09/09/18 11:06 Pulse Ox 93 L 09/09/18 11:06 Intake & Output 09/08/18 09/09/18 09/09/18 18:59 06:59 18:59 Intake Total 512.088 0 1062 Output Total 800 Balance 512.088 0 262 Intake: Intake, IV Titration 294.088 0 Amount Heparin Sod,Pork in 0.45% 294.088 NaCl 25,000 unit In 0.45 % NaCl 1 250ml.bag @ 18 UNITS/KG/HR 21.22 mls/hr IV .[id number] KRYSTIAN Rx#: [id number] Sodium Chloride 0.9% 1, 0 000 ml @ 20 mls/hr IV . Q24H KRYSTIAN Rx#:[id number] Oral 218 1062 Output: Urine 800 Other: Voiding Method Urinal Urinal # Voids 3 2 - Exam - Constitutional General appearance: cooperative, disheveled, morbidly obese, no acute distress - EENT Eyes: EOMI, PERRLA, normal appearance Ears: bilateral: normal - Neck Carotids: bilateral: upstroke normal Thyroid: bilateral: normal size - Respiratory Respiratory: bilateral: CTA - Cardiovascular Heart sounds: normal: S1, S2 - Gastrointestinal General gastrointestinal: decreased bowel sounds, soft - Integumentary Integumentary: normal turgor - Neurologic Neurologic: CNII-XII intact - Musculoskeletal Musculoskeletal: gait normal, generalized weakness, strength equal bilaterally - Psychiatric Psychiatric: A&O x's 3, appropriate affect, intact judgment & insight - Labs CBC & Chem 7: 09/09/18 06:26 09/05/18 11:35 Labs: Abnormal Lab Results - Last 24 Hours (Table) 09/09/18 Range/Units 06:26 RBC 3.87 L (4.30-5.90) m/uL Hgb 11.8 L (13.0-17.5) gm/dL Hct 37.3 L (39.0-53.0) % Assessment and Plan Assessment: Extensive left lower extremity deep venous thrombosis with poor response to therapy Acute pulmonary embolism Left lower extremity DVT and venous thrombosis Hypothyroidism Depression and mood disorder GERD Chronic persistent intermittent asthma Plan: Continue home medications, patient will be transferred for a thrombolysis and possible thrombectomy to tertiary care center IV heparin to be discontinued and start oral Eliquis 10 mg bid Echocardiogram results and reports are reviewed no evidence of significant pulmonary hypertension Further recommendations pending plan of care as per clinical response of the patient Pertinent Studies: Venous duplex ultrasound of the lower extremity, chest CT, echocardiogram, Procedures: As above Patient Condition at Discharge: Good Plan - Discharge Summary Discharge Rx Participant: Yes New Discharge Prescriptions: No Action Budesonide-Formot 160-4.5 Mcg [Symbicort 160-4.5 Mcg Inhaler] 2 puff INHALATION RT-DAILY #1 inhaler Levothyroxine Sodium [Synthroid] 50 mcg PO DAILY 14 Days tab Albuterol Inhaler [Ventolin Hfa Inhaler] 2 puff INHALATION RT-BID PRN #1 inhaler PRN Reason: Shortness Of Breath Or Wheezing clonazePAM [KlonoPIN] 2 mg PO HS #28 tab QUEtiapine [SEROquel] 300 mg PO HS #42 tab QUEtiapine [SEROquel] 25 mg PO BID Omeprazole [PriLOSEC] 20 mg PO DAILY Losartan Potassium 100 mg PO DAILY Citalopram Hydrobromide [CeleXA] 20 mg PO HS Valproic Acid Oral Soln [Depakene Syrup] 30 ml PO HS PRN PRN Reason: Insomnia Gabapentin [Neurontin] 100 mg PO QID Discharge Medication List Albuterol Inhaler [Ventolin Hfa Inhaler] 2 puff INHALATION RT-BID PRN #1 inhaler 04/01/15 [Rx] Budesonide-Formot 160-4.5 Mcg [Symbicort 160-4.5 Mcg Inhaler] 2 puff INHALATION RT-DAILY #1 inhaler 04/01/15 [Rx] Levothyroxine Sodium [Synthroid] 50 mcg PO DAILY 14 Days tab 04/01/15 [Rx] QUEtiapine [SEROquel] 300 mg PO HS #42 tab 06/18/15 [Rx] clonazePAM [KlonoPIN] 2 mg PO HS #28 tab 06/18/15 [Rx] Citalopram Hydrobromide [CeleXA] 20 mg PO HS 08/24/16 [History] Losartan Potassium 100 mg PO DAILY 08/24/16 [History] Omeprazole [PriLOSEC] 20 mg PO DAILY 08/24/16 [History] QUEtiapine [SEROquel] 25 mg PO BID 08/24/16 [History] Valproic Acid Oral Soln [Depakene Syrup] 30 ml PO HS PRN 09/01/16 [History] Gabapentin [Neurontin] 100 mg PO QID 09/05/18 [History] Apixaban [Eliquis] 10 mg PO BID 09/09/18 [History] Follow up Appointment(s)/Referral(s): Sonali Main MD [Primary Care Provider] - 09/14/18 3:30 pm Evans Ann MD [STAFF PHYSICIAN] - 1 Week (Closed until September 19. Please call and schedule follow up appoitment during normal business hours.) Patient Instructions/Handouts: Pulmonary Embolism (DC), Deep Vein Thrombosis ( DC), Safe Use of Anticoagulants (DC) Activity/Diet/Wound Care/Special Instructions: pts copay for eliquis or xarelto is $3.70
[2018-09-09 16:29] VITALS: BP 91/58; PULSE 95
== END 2018-09-09 19:04 | disposition short-term general hospital (02) | DRG 299 ==
LOC: EC 10:48 → 3SCARD 15:36
PROVIDERS: ADMIT Internal Medicine Sleep Medicine; ATTEND Internal Medicine Sleep Medicine
DX: I82.402 Acute embolism and thrombosis of unspecified deep veins of left lower extremity (principal); I26.92 Saddle embolus of pulmonary artery without acute cor pulmonale; F31.30 Bipolar disorder, current episode depressed, mild or moderate severity, unspecified; G62.9 Polyneuropathy, unspecified; I11.9 Hypertensive heart disease without heart failure; E66.01 Morbid (severe) obesity due to excess calories; Z68.35 Body mass index [BMI] 35.0-35.9, adult; E03.9 Hypothyroidism, unspecified; N40.0 Benign prostatic hyperplasia without lower urinary tract symptoms; J44.9 Chronic obstructive pulmonary disease, unspecified; J45.20 Mild intermittent asthma, uncomplicated; M51.36 Other intervertebral disc degeneration, lumbar region; K21.9 Gastro-esophageal reflux disease without esophagitis; M19.90 Unspecified osteoarthritis, unspecified site; L40.9 Psoriasis, unspecified; G47.00 Insomnia, unspecified; F41.0 Panic disorder [episodic paroxysmal anxiety]; F10.20 Alcohol dependence, uncomplicated; Z79.01 Long term (current) use of anticoagulants; Z79.51 Long term (current) use of inhaled steroids; Z79.890 Hormone replacement therapy; Z79.899 Other long term (current) drug therapy; Z90.49 Acquired absence of other specified parts of digestive tract; Z87.39 Personal history of other diseases of the musculoskeletal system and connective tissue; Z87.81 Personal history of (healed) traumatic fracture; Z82.49 Family history of ischemic heart disease and other diseases of the circulatory system
CPT/HCPCS: 36415; 71275; 80053; 82550; 82553; 84484; 85025; 85610; 85730; 93005; 93306; 94640; 96365; 96366; 96375; 96376; 99284

== ENCOUNTER 2018-11-10 07:00 | Emergency (ER) | payer MEDICARE ==
[2018-11-10 07:17] VITALS: RESP 16
[2018-11-10] MEDS ORDERED: PANTOPRAZOLE 40 MG/10 ML VIAL IVP STA (07:19)
[2018-11-10] MEDS ORDERED: SODIUM CHLORIDE 0.9% 2,000 ML IV STA (07:19)
[2018-11-10] MEDS ORDERED: ONDANSETRON 4 MG/2 ML VIAL IVP STA (07:19)
--- NOTE | 2018-11-10 07:26 | ED ---
Nausea/Vomiting/Diarrhea HPI - General Chief complaint: Nausea/Vomiting/Diarrhea Stated complaint: NVD Time Seen by Provider: 11/10/18 07:19 Source: patient, RN notes reviewed Mode of arrival: ambulatory Limitations: no limitations - History of Present Illness Initial comments: 53-year-old male presents emergency Department chief complaint of abdominal discomfort, nausea vomiting. Patient states she's been vomiting for last 4 days and had some symptoms prior to that. Patient denies any localized abdominal pain states he has upper from vomiting. Denies fever or chills she's has slight diarrhea denies any dysuria hematuria. She had prior appendectomy. Denies any chest or shortness of breath. - Related Data Home Medications Medication Instructions Recorded Confirmed Losartan Potassium 100 mg PO DAILY 08/24/16 11/10/18 Omeprazole [PriLOSEC] 20 mg PO DAILY 08/24/16 11/10/18 Allopurinol [Zyloprim] 100 mg PO DAILY 11/10/18 11/10/18 Cholecalciferol [Vitamin D3] 5,000 unit PO DAILY 11/10/18 11/10/18 Divalproex ER [Depakote ER] 500 mg PO DAILY 11/10/18 11/10/18 HYDROcodone/APAP 5-325MG [Corinne 1 tab PO Q4HR PRN 11/10/18 11/10/18 5-325] Loratadine [Claritin] 10 mg PO DAILY 11/10/18 11/10/18 Multivitamin,Therapeutic [Thera] 1 tab PO DAILY 11/10/18 11/10/18 Warfarin [Coumadin] 5 mg PO DAILY 11/10/18 11/10/18 Previous Rx's Medication Instructions Recorded Albuterol Inhaler [Ventolin Hfa 2 puff INHALATION RT-BID PRN #1 04/01/15 Inhaler] inhaler Budesonide-Formot 160-4.5 Mcg 2 puff INHALATION RT-DAILY #1 04/01/15 [Symbicort 160-4.5 Mcg Inhaler] inhaler Levothyroxine Sodium [Synthroid] 50 mcg PO DAILY 14 Days tab 04/01/15 QUEtiapine [SEROquel] 300 mg PO HS #42 tab 06/18/15 clonazePAM [KlonoPIN] 2 mg PO HS #28 tab 06/18/15 Ondansetron Odt [Zofran Odt] 4 mg PO Q6HR PRN #14 tab 11/10/18 Allergies Allergy/AdvReac Type Severity Reaction Status Date / Time No Known Allergies Allergy Verified 11/10/18 08:58 Review of Systems ROS Statement: Those systems with pertinent positive or pertinent negative responses have been documented in the HPI. ROS Other: All systems not noted in ROS Statement are negative. Past Medical History Past Medical History: Asthma, GERD/Reflux, Hypertension, Osteoarthritis (OA), Thyroid Disorder Additional Past Medical History / Comment(s): psoriasis head and face, esophageal stricture, alcoholism, gout, lt ankle fx, insomnia, neuropathy "meds did'nt work so i stopped taking it", back pain, bipolar depression/anx/panic disorder, lumbar ddd History of Any Multi-Drug Resistant Organisms: None Reported Past Surgical History: Appendectomy Additional Past Surgical History / Comment(s): EGD x2,esophageal dilation, bx PAIN CLINIC PROCEDURES.lt ankle sx set and casted Past Anesthesia/Blood Transfusion Reactions: No Reported Reaction Past Psychological History: Anxiety, Bipolar, Depression Smoking Status: Never smoker Past Alcohol Use History: Daily Past Drug Use History: None Reported - Past Family History Mother Family Medical History: No Reported History Father Family Medical History: AFIB General Exam Limitations: no limitations General appearance: alert, in no apparent distress Head exam: Present: atraumatic, normocephalic, normal inspection Eye exam: Present: normal appearance, PERRL, EOMI. Absent: scleral icterus, conjunctival injection, periorbital swelling ENT exam: Present: mucous membranes dry. Absent: normal exam Neck exam: Present: normal inspection. Absent: tenderness, meningismus, lymphadenopathy Respiratory exam: Present: normal lung sounds bilaterally. Absent: respiratory distress, wheezes, rales, rhonchi, stridor Cardiovascular Exam: Present: normal rhythm, tachycardia, normal heart sounds. Absent: systolic murmur, diastolic murmur, rubs, gallop, clicks GI/Abdominal exam: Present: soft, tenderness (Mild mid epigastric tenderness), normal bowel sounds. Absent: distended, guarding, rebound, rigid Back exam: Absent: CVA tenderness (R), CVA tenderness (L) Course Vital Signs 11/10/18 07:14 Temperature 98.8 F Pulse Rate 108 H Respiratory 16 Rate Blood Pressure 130/84 O2 Sat by Pulse 98 Oximetry Medical Decision Making - Medical Decision Making 53-year-old male presented for nausea vomiting. Patient did have lab work, x- ray and was given antiemetics and fluids. Patient is tolerated oral intake in the emergency department. Patient's found to be hypokalemic and hypomagnesemic most likely related to his alcohol intake which is chronic and abusive. We did discuss following up with a in his primary care physician. Patient will be discharged with antiemetics return parameters were discussed. - Lab Data Result diagrams: 11/10/18 07:40 11/10/18 07:40 Lab Results 11/10/18 11/10/18 11/10/18 Range/Units 07:40 07:40 07:40 WBC 7.7 (3.8-10.6) k/uL RBC 4.71 (4.30-5.90) m/uL Hgb 14.3 (13.0-17.5) gm/dL Hct 43.6 (39.0-53.0) % MCV 92.5 (80.0-100.0) fL MCH 30.3 (25.0-35.0) pg MCHC 32.8 (31.0-37.0) g/dL RDW 14.6 (11.5-15.5) % Plt Count 146 L (150-450) k/uL Neutrophils % 72 % Lymphocytes % 19 % Monocytes % 6 % Eosinophils % 1 % Basophils % 0 % Neutrophils # 5.5 (1.3-7.7) k/uL Lymphocytes # 1.5 (1.0-4.8) k/uL Monocytes # 0.4 (0-1.0) k/uL Eosinophils # 0.0 (0-0.7) k/uL Basophils # 0.0 (0-0.2) k/uL PT 21.2 H (9.0-12.0) sec INR 2.2 H (<1.2) APTT 26.4 (22.0-30.0) sec Sodium 136 L (137-145) mmol/L Potassium 3.2 L (3.5-5.1) mmol/L Chloride 91 L (98-107) mmol/L Carbon Dioxide 24 (22-30) mmol/L Anion Gap 21 mmol/L BUN 13 (9-20) mg/dL Creatinine 0.82 (0.66-1.25) mg/dL Est GFR (CKD-EPI)AfAm >90 (>60 ml/min/1.73 sqM) Est GFR (CKD-EPI)NonAf >90 (>60 ml/min/1.73 sqM) Glucose 86 (74-99) mg/dL Calcium 9.7 (8.4-10.2) mg/dL Magnesium 1.1 L (1.6-2.3) mg/dL Total Bilirubin 1.3 (0.2-1.3) mg/dL AST 72 H (17-59) U/L ALT 56 (21-72) U/L Alkaline Phosphatase 101 (38-126) U/L Total Protein 7.1 (6.3-8.2) g/dL Albumin 4.4 (3.5-5.0) g/dL Amylase 44 (30-110) U/L Lipase 274 (23-300) U/L Disposition Clinical Impression: Nausea & vomiting, Hypokalemia, Hypomagnesemia Disposition: HOME SELF-CARE Condition: Stable Instructions (If sedation given, give patient instructions): Acute Nausea and Vomiting (ED) Additional Instructions: Please return to the Emergency Department if symptoms worsen or any other concerns. Prescriptions: Ondansetron Odt [Zofran Odt] 4 mg PO Q6HR PRN #14 tab PRN Reason: Nausea Is patient prescribed a controlled substance at d/c from ED?: No Referrals: Sonali Main MD [Primary Care Provider] - 1-2 days Time of Disposition: 09:53
[2018-11-10 07:57] LABS: Basophils % (A) 0 %; Eosinophils % (A) 1 %; HCT 43.6 % (39.0-53.0); HGB 14.3 gm/dL (13.0-17.5); Lymphocytes # (A) 1.5 k/uL (1.0-4.8); Lymphocytes % (A) 19 %; MCH 30.3 pg (25.0-35.0); MCHC 32.8 g/dL (31.0-37.0); MCV 92.5 fL (80.0-100.0); Mean Platelet Volume 7.6; Monocytes # (A) 0.4 k/uL (0-1.0); Monocytes % (A) 6 %; Neutrophils # (A) 5.5 k/uL (1.3-7.7); Neutrophils % (A) 72 %; Platelet Count 146 k/uL (150-450); RBC 4.71 m/uL (4.30-5.90); RDW 14.6 % (11.5-15.5); WBC 7.7 k/uL (3.8-10.6)
[2018-11-10 08:05] LABS: INR 2.2 (<1.2); Partial Thromboplastin Time 26.4 sec (22.0-30.0); Prothrombin Time 21.2 sec (9.0-12.0)
[2018-11-10 08:06] LABS: ALT 56 U/L (21-72); AST 72 U/L (17-59); Albumin 4.4 g/dL (3.5-5.0); Alkaline Phosphatase 101 U/L (38-126); Amylase 44 U/L (30-110); Anion Gap 21 mmol/L; Blood Urea Nitrogen 13 mg/dL (9-20); Calcium 9.7 mg/dL (8.4-10.2); Carbon Dioxide 24 mmol/L (22-30); Chloride 91 mmol/L (98-107); Glucose 86 mg/dL (74-99); Lipase 274 U/L (23-300); Magnesium 1.1 mg/dL (1.6-2.3); Potassium 3.2 mmol/L (3.5-5.1); Sodium 136 mmol/L (137-145); Total Bilirubin 1.3 mg/dL (0.2-1.3); Total Protein 7.1 g/dL (6.3-8.2)
--- NOTE | 2018-11-10 08:06 | XR ---
EXAMINATION TYPE: XR KUB DATE OF EXAM: 11/10/2018 7:58 AM CLINICAL HISTORY: Nausea and vomiting for 4 days. Abdominal pain. TECHNIQUE: Two Upright KUB images of the abdomen are obtained. COMPARISON: Upper GI study April 12, 2015 FINDINGS: Scattered gas is seen in non-distended stomach and small bowel loops. Gas is seen in non-di stended colon. Surgical clip overlies right sacrum. No pneumoperitoneum is present. Lung bases are cl ear. Osseous structures are intact. IMPRESSION: Overall nonobstructive bowel gas pattern.
[2018-11-10] MEDS ORDERED: POTASSIUM CHLORIDE ER 20 MEQ TAB.ER PO STA (08:17)
[2018-11-10] MEDS ORDERED: MAGNESIUM SULFATE-D5W PMX 1 GM in DEXTROSE/WATER 1 100ML.BAG IVPB ONE (08:17)
[2018-11-10] MEDS ORDERED: diphenhydrAMINE 50 MG/ML 1 ML VIAL IVP STA (08:39)
[2018-11-10] MEDS ORDERED: METOCLOPRAMIDE 5 MG/ML 2 ML VIAL IVP STA (08:39)
[2018-11-10 10:33] VITALS: BP 117/91; PULSE 90; TEMP 97.9
== END 2018-11-10 10:31 | disposition home or self-care (01) ==
LOC: EC 07:00
DX: E87.6 Hypokalemia (principal); E83.42 Hypomagnesemia; R11.2 Nausea with vomiting, unspecified; K21.9 Gastro-esophageal reflux disease without esophagitis; I10 Essential (primary) hypertension; F31.9 Bipolar disorder, unspecified; F41.9 Anxiety disorder, unspecified; Z79.01 Long term (current) use of anticoagulants; Z79.899 Other long term (current) drug therapy
CPT/HCPCS: 36415; 74018; 80053; 82150; 83690; 83735; 85025; 85610; 85730; 96361; 96365; 96375; 99284